=== PATIENT | male | born 1960 | race Caucasian/White ===

== ENCOUNTER → 2024-02-16 | Outpatient (CLI) | payer BC, SELFPAY ==
--- NOTE | 2024-02-16 13:11 | XR_ITS ---
Examination: CT soft tissue neck, without intravenous contrast. 2-D coronal reconstructions. 2-D sagittal reconstructions. Date and time of exam :February 16, 2024 1313 hours INDICATIONS: Swollen left neck lymph nodes no disc beginning 4 months ago. CTDI: vol (mGy):15.5 DLP: (mGycm):412 Technique: 1.25 mm axial sections of the neck of the obtained. Coronal and sagittal reconstructions have been obtained. Low dose protocols were performed. One or more of the following dose reduction techniques were used; automated exposure control, adjustment of the mA and/or KV according to patient size, use of iterative reconstruction technique. Findings: Optic globes exhibit symmetry Symmetrical nasopharynx oropharynx 29 mm left carotid triangle lymph node The larynx appears normal Normal epiglottis No prevertebral soft tissue prominence Moderate degenerative disc disease C5-C6, C6-C7 IMPRESSION: 29 mm left carotid triangle lymph node, differential would include metastatic lymphadenopathy, this lymph node is amenable to CT-guided percutaneous biopsy for diagnosis
== END | disposition home or self-care (01) ==
PROVIDERS: PCP Internal Medicine; Referring Provider Internal Medicine; Visit Provider Internal Medicine
DX: R59.0 Localized enlarged lymph nodes (principal)
CPT/HCPCS: 70490

== ENCOUNTER 2024-03-16 08:20 | Day surgery (SDC) | payer BC, SELFPAY ==
--- NOTE | 2024-03-12 07:00 | EKG_ITS ---
[facility] Test Date: 2024-03-12 Pat Name: EVELINE MENENDEZ Department: Room: - Gender: Male Resident Engineer: RT STUDENT : 1960 Requested By: Claudine Madrid Order Number: [id number] Reading MD: Claudine Madrid Measurements Intervals Dora Rate: 79 P: 21 NJ: 148 QRS: -7 QRSD: 101 T: 18 QT: 370 QTc: 426 Interpretive Statements SINUS RHYTHM LOW QRS VOLTAGE IN PRECORDIAL LEADS POSSIBLE RIGHT VENTRICULAR CONDUCTION DELAY MINIMAL VOLTAGE CRITERIA FOR LVH, CONSIDER NORMAL VARIANT No previous ECG available for comparison /store/S0/[id number]/ecg/[id number]
[2024-03-12 08:21] VITALS: BMI 29.3
[2024-03-12 10:18] LABS: Basophils # (Auto) 0.1 Thou/mm3 (0.0-0.2); Basophils % (Auto) 1 % (0-2.5); Eosinophils # (Auto) 0.4 Thou/mm3 (0.0-0.5); Eosinophils % (Auto) 3 % (0-10); Hematocrit 41.1 % (41.0-53.0); Hemoglobin 14.3 g/dL (13.5-16.0); Immature Granulocytes % (Auto) 1 % (0-0); Immature Granulocytes Auto 0.06 Thou/mm3 (0.00-0.00); Lymphocytes # (Auto) 1.9 Thou/mm3 (1.0-4.8); Lymphocytes % (Auto) 16 % (10-50); Mean Corpuscular HGB Conc 34.8 g/dl (31.0-37.0); Mean Corpuscular Hemoglobin 32.9 pg (25.0-35.0); Mean Corpuscular Volume 95 fL (80-100); Monocytes # (Auto) 1.5 Thou/mm3 (0.0-0.8); Monocytes % (Auto) 13 % (0-12); Neutrophils # (Auto) 7.7 Thou/mm3 (1.8-7.7); Neutrophils % (Auto) 66 % (37-80); Nucleated Red Blood Cell % 0 /100 WBC (0); Platelet Count 215 Thou/mm3 (140-440); RDW Standard Deviation 47.8 fL (35.1-43.9); Red Blood Count 4.34 Miln/mm3 (4.50-5.90); White Blood Count 11.5 Thou/mm3 (3.8-10.6)
[2024-03-12 10:38] LABS: Alanine Aminotransferase 20 U/L (10-49); Albumin, Serum 5.1 gm/dL (3.4-4.8); Albumin/Globulin Ratio 1.9 (1.2-2.2); Alkaline Phosphatase 77 U/L (46-116); Anion Gap 7 (7-16); Aspartate Amino Transferase 19 U/L (0-34); BUN/Creatinine Ratio 17 Ratio (12-20); Bilirubin,Total 1.4 mg/dL (0.3-1.2); Blood Urea Nitrogen 20 mg/dL (9-23); Calcium 10.1 mg/dL (8.3-10.6); Calcium (Corrected) 10.1 mg/dL (8.5-10.1); Carbon Dioxide 30.2 mMol/L (20.0-31.0); Chloride 98 mMol/L (98-107); Creatinine (Component) 1.2 mg/dL (0.6-1.3); Estimated Creatinine Clearance 66.9 mL/min (>60); Globulin 2.7 gm/dL (2.3-3.5); Glucose 117 mg/dL (74-106); Osmolality,Calculated 273 (275-295); Potassium 4.6 mMol/L (3.4-5.1); Sodium 135 mMol/L (136-145); Total Protein 7.8 gm/dL (5.7-8.2); eGFR > 60 See Note
--- NOTE | 2024-03-15 14:11 | SUR.PREOP ---
Pt notified to come in at 0830 tomorrow for surgery.
[2024-03-16] VITALS (9 sets, daily range): BP systolic 129–148; BP diastolic 67–84; PULSE 68–80; RESP 12–16; TEMP 36.5–36.9; O2SAT 95–99; BMI 28.5
[2024-03-16] MEDS: RINGERS LACTATED 1000 ML 1,000 ML 20 ML IV (09:27)
--- NOTE | 2024-03-16 10:46 | SUR.PHASEI ---
pt received from OR in recovery bay 8. pt asleep but responds to voice, breathing unlabored on oxymask 8l. v/s stable. pt dressing to left neck cdi. report received from Sully BRAGA and Ruslan EDMONDSON.
--- NOTE | 2024-03-16 10:52 | ESOP_ITS ---
Date of Procedure 03/16/24 Pre Op Diagnosis Left neck mass Post Op Diagnosis Left neck mass Procedure Excision of deep subfascial mass from left neck Findings An approximately 3.5 cm hard mass on the anterior triangle of the neck Procedure Description Patient brought into the operating room in supine position. After administration of general tracheal anesthesia, patient's neck was extended and turned to his right. The left side of the neck was prepped and draped in standard surgical manner. The mass was palpated and noted to be in the anterior triangle of the neck near the angle of the mandible. After administration of local anesthesia 3 cm incision was made and dissection was deepened soft tissue. Platysma was divided. The mass was noted to be anterior to the sternocleidomastoid muscle. The sternocleidomastoid muscle was retracted posteriorly and the area was inspected. Patient was noted to have an approximately 3.5 cm firm mass just lateral to the jugular vein. The mass was meticulously circumferentially dissected out surrounding tissue. The smaller venous channels entering the mass was ligated between application of clips. Also the lymphatic channels entering the mass was ligated. The mass was removed. The area was washed and irrigated. Hemostasis was adequate and satisfactory. Topical hemostatic agent using snow Surgicel placed to further assure hemostasis. Anterior edge of the sternocleidomastoid muscle was reapproximated to thyrohyoid muscle. Platysma was reapproximated with interrupted sutures using 2-0 Vicryl and incision was closed with 4-0 Monocryl in subcuticular fashion. Dermabond applied. Patient tolerated procedure well. He was extubated, breathing spontaneously and without difficulty and was transferred to postanesthesia care in stable condition. Instruments, needles and sponge counts were reported to be correct x 2. Anesthesia GETA and local Pathology / specimen Other (Left neck mass) Estimated Blood Loss 5 Condition Stable Disposition PACU Surgeon Claudine Madrid MD Surgical Staff Operation Date: 03/16/24 10:30 Case Staff HOME [employer]URNISH[employer] SALES REPRESENTATIVE: Ruslan Alcaraz RNcapping machine operator: Skye Bartlett
--- NOTE | 2024-03-16 11:44 | SUR.PHASEII ---
pt able to tolerate oral fluids without difficulty swallowing or nausea/vomiting.
--- NOTE | 2024-03-16 12:20 | SUR.PHASEII ---
pt awake and alert, breathing unlabored on room air. v/s stable. pt dressing to left neck cdi. pt able to ambulate to wheelchair with steady gait. d/c isntructions given with friend Phill in room, all questions answered. pt d/c via wheelchair with all belongings.
== END 2024-03-16 12:20 | disposition home or self-care (01) ==
PROVIDERS: Anesthesiology; PCP Internal Medicine; Referring Provider Surgery; Visit Provider Surgery
PROC: (CPT 21556; principal; 2024-03-16 10:15)
DX: C77.0 Secondary and unspecified malignant neoplasm of lymph nodes of head, face and neck (principal); C80.1 Malignant (primary) neoplasm, unspecified; E11.9 Type 2 diabetes mellitus without complications; E78.00 Pure hypercholesterolemia, unspecified; I10 Essential (primary) hypertension
CPT/HCPCS: 21556; 36415; 80053; 85025; 93005; A4217; A4649; J0131; J0690; J1100; J2250; J2405; J2704; J3010; J3490; J7120

== ENCOUNTER → 2024-03-30 | Outpatient (CLI) | payer BC, SELFPAY ==
[2024-03-30 17:17] LABS: Albumin, Serum 4.4 gm/dL (3.4-4.8); Anion Gap 7 (7-16); BUN/Creatinine Ratio 21 Ratio (12-20); Blood Urea Nitrogen 25 mg/dL (9-23); Calcium 10.2 mg/dL (8.3-10.6); Calcium (Corrected) 10.2 mg/dL (8.5-10.1); Carbon Dioxide 28.9 mMol/L (20.0-31.0); Chloride 105 mMol/L (98-107); Creatinine (Component) 1.2 mg/dL (0.6-1.3); Glucose 132 mg/dL (74-106); Osmolality,Calculated 287 (275-295); Phosphorous 4.1 mg/dL (2.4-5.1); Potassium 4.6 mMol/L (3.4-5.1); Sodium 141 mMol/L (136-145); eGFR > 60 See Note
== END | disposition home or self-care (01) ==
LOC: COPL 15:07
PROVIDERS: PCP Internal Medicine; Referring Provider Internal Medicine; Visit Provider Internal Medicine
DX: I10 Essential (primary) hypertension (principal)
CPT/HCPCS: 36415; 80069

== ENCOUNTER 2024-05-05 08:42 | Outpatient (RCR) | payer BC, SELFPAY ==
--- NOTE | 2024-04-27 13:22 | CTCTXPLN_ITS ---
[facility] [address] [place], [place] [address] Physician Clinical Treatment Planning Note Date of Service: 04/27/2024 Name: EVELINE MENENDEZ : 1960 The patient has agreed to proceed with Radiation therapy. Tests and supporting medical records were interpreted to assist in defining the tumor location and extent of disease. Further imaging will be necessary to contour and delineate the volume to which the XRT will be provided. A. Treatment Intent: Curative B. Modality: 6 MV C. Requested Technique: VMAT D. Treatment Site: Head and neck E. Critical structures to be contoured on plan: F. In order to accomplish this plan, I am ordering/Prescribing the followin. Simulations (s) will be performed to accomplish a reproducible treatment position, to determine optimal treatment portals/beam arrangements, to design beam modifying devices and verify treatment portals on patient prior to the commencement of Radiation Therapy. Head and neck 2. Devices; for immobilization and beam shaping: Aquaplast 3. CT Guidance for placement of XRT villalba Scan area: 4. Portal images Frequency: 5. Invivo transit dose measurement once per week on all VMAT patients. 6. Special Physics Consult Requested for: 7. Other requests: This procedure someone getting chemo and radiation G. Dose Objectives: Curative Electronically signed by: Jordan Chappell M.D. 04/27/2024 1:20 PM
--- NOTE | 2024-04-27 13:24 | CTCTXPLNST_ITS ---
[facility] Treatment Planning Sheet Name: EVELINE MENENDEZ MR#: [id number] : 1960 Dx: C01 Malignant neoplasm of base of tongue Date of Service: 04/27/2024 Account #: ?? Pt Treatment Intent: curative palliative other: Stage: Procedure CPT # Ordered Spec. Procedure 41228 1 Bailey Complex (set-up) 39488 Head and neck 1 Bailey Simple 49444 IMRT Plan 93306 1 MLC Devices VMAT 69817 3 Bailey 3 D 75448 TRTMT dev Complex 73207 Aqua Plast 1 TRTMT dev simple 76950 Basic Carmine 66592 9 Special Dosimetry 87516 Spec Physics 71453 Port Films 65315 SRS Cranial/1FX 52699 SBR 5 FX or Less /ex: 5 = 5 fx 29152 IMRT Simple 62304 7000 35 IMRT Complex 51911 IGRT 31828 33 Rad del com 6-10 91667 Rad del com 11- 08819 Cont Med Physics 87387 7 Treatment Planning 63873 1 Rad del com 20 mev 07900 Rad del inter 6-10 57861 Rad del inter 11 85399 Rad del simple 6-10 75525 Rad del simple 11 88623 Special Port Plan 53228 TRTMT dev inter 51665 Isodose Complex 50064 Isodose simple 68939 Resp Motion Mgmt Simulation 02977 Placement of Fiducial Markers 53829 Electronically Signed By: Jordan Chappell MD, DABR 04/27/2024 1:21 PM
--- NOTE | 2024-04-28 08:30 | CTCCONSULT_ITS ---
[facility] [address] [place], [place] [address] Consultation Note Date: 04/27/2024 MR#: [id number] Name: EVELINE MENENDEZ : 1960 Dx: C01 Malignant neoplasm of base of tongue Attending physician. Natalie Jeffery MD Reason for consultation. Patient with cT4N1 base of tongue CA with neck mets referred for radiation therapy to the cancer treatment center History of Present Illness: Patient is a 63-year-old gentleman who noticed a growing mass in the left side of his neck with CT scan of the neck 02/16/2024 revealing a 29 mm left carotid triangle lymph node when undergoing excisional biopsy revealed metastatic squamous cell CA moderate differentiated largest dimension 4.2 cm. P16 positive. PD-L1 score 30. Further evaluated [facility] where MRI and PET scan ordered by the head and neck surgery team. MRI 04/12/2024 revealed bulky mass surface left base of tongue extending anteriorly to the posterior half of the floor the mouth into glossotonsillar sulcus to involve the anterior tonsillar pillar. Mass extended into the vallecula region. PET scan 04/11/2024 revealed intense base of tongue mass involving the posterior half of the floor of the mouth on the left to involve vallecular region mildly uptake in the level 3 in the left neck and small focus around the right retromolar trigone area. Patient was considered for surgery, but felt to be a better radiation candidate and referred to the cancer treatment center. Past Medical History: Hypertension asthma diabetes Meds. 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 Denies smoking drinks 3 beers per day Review of Systems: Has experienced cough headaches trouble swallowing unexplained fatigue weakness Physical Exam: General: Well-appearing gentleman no acute distress HEENT: Easily visible and palpable mass in the left base of tongue which does extend posteriorly to the vallecular region and anteriorly to the mid floor the mouth. Surgical changes felt in the left neck no other adenopathy appreciated CV: Chest clear to auscultation heart regular rate and rhythm ABD: Soft no organomegaly or tenderness EXT: No sinus clubbing or edema. Assessment: 1. 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 2. Patient stated that they recommend radiation therapy but did not hear about chemotherapy which is usually given concurrently. Will check with his head and neck surgeon at [facility] Dr Kenney. 3. Told to see dentist about preradiation dental eval. 4. About 7000 cGy will be delivered to the gross tumor sites and 5000-50 500 centigrade to the subclinically involved regions. Side effects explained. 5. Thank you much for allowing me to evaluate and manage this patient. Cc: Saumya Jeffery MD [facility] Head and Neck surgery. Electronically signed by: Jordan Chappell MD, DABR 04/28/2024 8:28 AM
--- NOTE | 2024-05-06 12:58 | CTCCONSULT_ITS ---
Patient: EVELINE MENENDEZ : 1960 MR#: [id number] Page 2 of 2 CONSULTATION NOTE DATE OF CONSULTATION: 05/05/2024 NAME: EVELINE MENENDEZ ACCOUNT: [id number] : 1960 AGE: 63 REFERRING PHYSICIAN: Natalie Jeffery MD PRIMARY PHYSICIAN: Natalie Jeffery MD REASON FOR VISIT: ONCOLOGY HISTORY: DIAGNOSIS: Malignant neoplasm of base of tongue [ICD10] C01 Squamous cell carcinoma of the base of the tongue DATE OF DIAGNOSIS: 03/16/2024 STAGE/TNM: T4 N1 M0 TREATMENT HISTORY: Care?Plan Start?Date Cycle Day Intent HISTORY OF PRESENT ILLNESS: 63-year-old male OTHER MEDICAL HISTORY/CONDITIONS: TONGUE CANCER DIABETES ASTHMA HYPERTENSION CHOLECYSTECTOMY 2012 RIGHT KNEE REPAIR 2016 FAMILY HISTORY: Father:?DENIES Mother:?DENIES Sibling:?SISTER?LICHEN?SCLEROSUS Children:?DENIES Cancer?History:?TONGUE?CANCER SOCIAL HISTORY: Occupational?History:?[employer] Education?Level:?Attended College, did not graduate Marital?Status:? Tobacco?Pack?per?Day:?0 Tobacco?Use?Years:?3 Tobacco Use:?DENIES , SMOKED FOR 3 YEARS IN 90S ETOH?Use:?DAILY?LIQUOR Drug?Note:?DENIES Social?History?Note:?LIVES?ALONE MEDICATIONS: 1. Aspirin Child - 81 mg Daily 2. atorvastatin - 40 mg Daily 3. lisinopril-hydrochlorothiazide - 10 mg Daily 4. metformin - 500 mg Daily 5. Wixela Inhub - As directed Medications Last Reconciled by Noelle Bob RN on 05/05/2024 ALLERGIES: No Known Allergies REVIEW OF SYSTEMS: A complete 14-point review of systems was performed and is negative except as noted in interval history. PHYSICAL EXAMINATION: VITAL SIGNS: Temperature?99.5, B/P?139/84, Height?68?inches, Oxygen?Saturation?97% Weight?194?lbs (Change?since?04/27/24:?0?lbs) PAIN: 0 - No pain ECOG Performance Status: 0 - Asymptomatic and fully active GENERAL APPEARANCE: Appears well, in no apparent distress, appropriately interactive. HEENT: Normocephalic, no temporal wasting, normal conjunctiva, no scleral icterus, normal hearing, lips without lesions, neck normal range of motion. Large mass visible of by the open mouth coming from the back of the tongue CARDIOVASCULAR: Not assessed. PULMONARY: Normal respiratory effort, no respiratory distress or use of accessory muscles, speaking in full sentences, no tachypnea. EXTREMITIES: No pedal edema or cyanosis. SKIN: Normal skin appearance. NEUROLOGIC: Alert and oriented x4. PSHYCHIATRIC: Appropriate affect, mood normal, behavior normal, intact thought and speech. LABORATORY DATA: I have personally reviewed and interpreted each of the patient?s relevant lab tests, abnormal findings are below: Date 03/30/24 ??GLUCOSE,RANDOM?(mg/dL) 132?H ??BLOOD?UREA?NITROGEN?(mg/dL) 25?H ??CREATININE?(mg/dL) 1.20 ??SODIUM?(mmol/L) 141 ??POTASSIUM?(mmol/L) 4.6 ??CHLORIDE?(mmol/L) 105 ??ALBUMIN,?SERUM?(gm/dl) 4.4 ??CALCIUM,?SERUM?(mg/dL) 10.2 ??CALCIUM?SERUM?(CORRECTED)?(mg/dL) 10.2?H 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 with extension to the floor of the mouth vallecula and neck Will treat him with concurrent chemoradiation Patient was initially planned by [facility] team for surgery and later planned for radiation but patient now has transferred care Will get port catheter placement. Patient already have appointment. Will need PEG tube feeding. Nutrition consult. Patient also need to see dentist and audiometry at the baseline We do not need to wait for all the above to complete before starting treatment as long as patient have port catheter High dose cisplatin ORDERS: Order # Description [id number] Comprehensive Metabolic Panel - 12 + CBC with Auto Diff + [id number] MD Follow Up 4 Month [id number] MD Follow Up 4 Week RETURN TO CLINIC: BILLING AND COMPLIANCE: I reviewed external records from providers outside my specialty as summarized above. I spent a total of 50 minutes on this patient?s care on the day of their visit excluding time spent related to any billed procedures. This time includes time spent with the patient as well as time spent documenting in the medical record, reviewing patients records and tests, obtaining history, placing orders, communicating with other healthcare professionals, counseling the patient, family or caregiver, and/or care coordination for the diagnoses above. Electronically Signed by: Corwin Frank MD T: 12:55 PM CC: PCP: Natalie Jeffery Referring: Natalie Jeffery This document was completed utilizing speech recognition software. Grammatical errors, random word insertions, pronoun errors, and incomplete sentences are an occasional consequence of this system due to software limitations, ambient noise, and hardware issues. Any formal questions or concerns about the content, text or information contained within the body of this dictation should be directly addressed to the provider for clarification.
== END 2024-05-17 23:59 | disposition home or self-care (01) ==
LOC: SCTC 08:42
PROVIDERS: PCP Internal Medicine; Referring Provider Internal Medicine; Visit Provider Internal Medicine Hematology & Oncology
DX: C01 Malignant neoplasm of base of tongue (principal); C77.0 Secondary and unspecified malignant neoplasm of lymph nodes of head, face and neck
CPT/HCPCS: 77014; 77290; 77300; 77301; 77334; 77338; 99213; G0463

== ENCOUNTER 2024-05-20 08:22 | Outpatient (CLI) | payer BC, SELFPAY ==
[2024-05-11 14:07] VITALS: BMI 27.9
[2024-05-12 10:57] VITALS: BMI 27.8
[2024-05-12 13:13] LABS: Basophils # (Auto) 0.1 Thou/mm3 (0.0-0.2); Basophils % (Auto) 1 % (0-2.5); Eosinophils # (Auto) 0.1 Thou/mm3 (0.0-0.5); Eosinophils % (Auto) 1 % (0-10); Hemoglobin 13.6 g/dL (13.5-16.0); Immature Granulocytes % (Auto) 0 % (0-0); Immature Granulocytes Auto 0.03 Thou/mm3 (0.00-0.00); Lymphocytes # (Auto) 2.1 Thou/mm3 (1.0-4.8); Lymphocytes % (Auto) 19 % (10-50); Mean Corpuscular Hemoglobin 33.7 pg (25.0-35.0); Mean Corpuscular Volume 99 fL (80-100); Monocytes % (Auto) 9 % (0-12); Neutrophils # (Auto) 7.4 Thou/mm3 (1.8-7.7); Neutrophils % (Auto) 70 % (37-80); Nucleated Red Blood Cell % 0 /100 WBC (0); Platelet Count 252 Thou/mm3 (140-440); RDW Standard Deviation 46.8 fL (35.1-43.9); Red Blood Count 4.03 Miln/mm3 (4.50-5.90); White Blood Count 10.6 Thou/mm3 (3.8-10.6)
[2024-05-12 13:20] LABS: Partial Thromboplastin Time 24.4 Seconds (22.0-36.0); Prothrombin Time 11.4 Seconds (9.0-12.2)
[2024-05-13 08:56] VITALS: BP 139/73; PULSE 66; RESP 17; TEMP 36.5; O2SAT 97
--- NOTE | 2024-05-13 09:18 | PC.NURSE ---
Patient took Aspirin yesterday. Per Dr Cruz reschedule patient for next week and for patient not to take Aspirin 5 days prior to procedure.
[2024-05-17 16:33] VITALS: BMI 27.8
[2024-05-20] VITALS (14 sets, daily range): BP systolic 111–136; BP diastolic 50–84; PULSE 66–80; RESP 12–18; TEMP 36.5–36.9; O2SAT 93–100
--- NOTE | 2024-05-20 09:30 | XR_ITS ---
Examination: IR venous implantation Port-A-Cath Ultrasound-guided needle placement right internal jugular vein. Fluoroscopy AP Chest, portable single view Exam date and time: May 20, 2024 1017 hours INDICATIONS: Diagnosis malignant neoplasm base of the tongue, requiring long-term intravenous chemotherapy. Informed consent provided Technique: A timeout was completed, verifying correct patient, procedure, site, positioning, and special equipment if applicable The patient was placed in a dependent position appropriate for central line placement based on the vein to be cannulated. The patient's right neck was prepped and draped in sterile fashion. Maximum Sterile Barrier Technique used including cap, mask, sterile gown, sterile gloves, and sterile full body drape. If ultrasound technique used: sterile gel and sterile probe covers. Hand Hygiene performed using proper scrub, soap and water, or alcohol-based hand rub. Site right portable apparatus utilized to confirm patency of the right internal jugular vein Utilizing ultrasonographic guidance successful 21-gauge needle puncture into the right internal jugular vein Ultrasound images were recorded and stored. Successful micropuncture with a 21-gauge needle was performed. 0.18 wire guide was introduced into the IVC under fluoroscopic guidance. Utilizing blunt dissection subcutaneous pocket formed in the upper right chest Port-A-Cath reservoir connected to a 8 Georgian 22 cm Port-A-Cath line placed through a venous sheath into the superior vena cava in satisfactory position Perfusion to the extremity distal to the point of catheter insertion was checked and found to be adequate The attending radiologist was present for the entire procedure Estimated blood loss2 cc. Findings: Under fluoroscopy, the tip of the catheter is in good position in the vena cava. Portable chest x-ray, post line placement, as ordered. Impression: Successful ultrasound-guided needle placement right internal jugular vein. Successful IR venous implantation Port-A-Cath Fluoroscopy 0.4 minutes radiation dose 2.16 milligray 1 spot fluoroscopic chest film. AP portable chest completion procedure demonstrates satisfactory position Port-A-Cath tip SVC. May use Port-A-Cath
[2024-05-20] MEDS: SODIUM CHLORIDE 0.9% 500 ML 500 ML 20 ML IV (10:45)
[2024-05-20] MEDS: ceFAZolin 1 GM in SODIUM CHLORIDE 0.9% 100 ML IV (10:45)
[2024-05-20] MEDS: fentaNYL CIT INJ 50 mCg/ML AMP 2ML 100 MCG IVP (11:16)
[2024-05-20] MEDS: LIDOCAINE 1% W/EPI 1:100K 20 ML VIAL 7 ML INFL (11:18)
[2024-05-20] MEDS: ceFAZolin INJ 1 GM VIAL STFIELD (11:18)
[2024-05-20] MEDS: LIDOCAINE INJ PF 1% 30 ML VIAL 5 ML INFL (11:18)
[2024-05-20] MEDS: HEPARIN SOD LOCK SYR 100 UNIT/ML 500 UNIT STFIELD (11:18)
--- NOTE | 2024-05-20 15:55 | PC.NURSE ---
1146 patient had port placement to right IJ, dressing dry with no bleeding, pt transferred to lab support tech for 1hr recovery 1246 patient is awake, alert, breathing unlabored, dressing dry with no active bleeding, patient able to eat sandwich with no nausea or vomiting, able to ambulate to bathroom and void, meets discharge criteria, discharge instructions given to patient and friend Inder, patient discharged home in wheelchair with all belongings.
== END 2024-05-20 12:46 | disposition home or self-care (01) ==
PROVIDERS: Radiology Diagnostic Radiology; PCP Internal Medicine; Referring Provider Internal Medicine Hematology & Oncology; Visit Provider Internal Medicine Hematology & Oncology
DX: C01 Malignant neoplasm of base of tongue (principal)
CPT/HCPCS: 36561; 36415; 76937; 77001; 85025; 85610; 85730; C1769; C1788; C1894; J0690; J1642; J3010; J3490; J7040; J7050

== ENCOUNTER 2024-06-08 11:29 | Emergency (ER) | payer BC, SELFPAY ==
[2024-06-08 11:39] VITALS: BP 95/65; PULSE 92; RESP 19; TEMP 37.1; O2SAT 96
--- NOTE | 2024-06-08 12:20 | EKG_ITS ---
[facility] Test Date: 2024-06-08 Pat Name: EVELINE MENENDEZ Department: Room: - Gender: Male Softball Winder: : 1960 Requested By: Oliver Snow Order Number: [id number] Reading MD: Oliver Snow Measurements Intervals Dailey Rate: 78 P: 15 MT: 144 QRS: 2 QRSD: 94 T: 27 QT: 355 QTc: 404 Interpretive Statements SINUS RHYTHM LOW QRS VOLTAGE IN PRECORDIAL LEADS [QRS DEFLECTION < 1.0 mV IN CHEST LEADS] POSSIBLE RIGHT VENTRICULAR CONDUCTION DELAY [RSR (QR) IN V1/V2] POSSIBLE ANTERIOR MYOCARDIAL INFARCTION , OF INDETERMINATE AGE [30 ms Q WAVE IN V3/V4, OR R < 0.2 mV IN V4] Compared to ECG 03/12/2024 09:10:16 Myocardial infarct finding now present /store/S0/[id number]/ecg/[id number]
--- NOTE | 2024-06-08 12:21 | PD.EDRME ---
Rapid Medical Screening Exam E Arrival date/time: 06/08/24 11:29 63-year-old male with a history of hyperlipidemia, hypertension, type 2 diabetes was sent to the emergency room by his primary care provider Dr. Jeffery for hypotension and needing IV fluids. Patient had a blood pressure of 77/57 during his appointment with his primary care provider this morning. I have greeted and performed a focused initial assessment of this patient. A comprehensive ED assessment and evaluation of the patient, analysis of all test results, and completion of the medical decision making process will be conducted by additional ED providers. Chief Complaint: General Adult/Misc Complain Vital signs: Vital Signs Temperature 98.8 F 06/08/24 11:39 Pulse Rate 92 06/08/24 11:39 Respiratory Rate 19 06/08/24 11:39 Blood Pressure 95/65 06/08/24 11:39 Pulse Oximetry (%) 96 06/08/24 11:39 Oxygen Delivery Method Room Air 06/08/24 11:39 Vital signs reviewed by provider: Yes
--- NOTE | 2024-06-08 12:41 | PD.EDRECHK ---
ED Recheck Abnl Lab Rx-RME/HPI General Chief Complaint: General Adult/Misc Complain Stated Complaint: SENT BY DR. JEFFERY FOR IV FLUIDS; BP 77/56 Arrival date/time: 06/08/24 11:29 RME / HPI RME / HPI narrative: 06/08/24 11:29 63-year-old male with a history of hyperlipidemia, hypertension, type 2 diabetes was sent to the emergency room by his primary care provider Dr. Jeffery for hypotension and needing IV fluids. Patient had a blood pressure of 77/57 during his appointment with his primary care provider this morning. I have greeted and performed a focused initial assessment of this patient. A comprehensive ED assessment and evaluation of the patient, analysis of all test results, and completion of the medical decision making process will be conducted by additional ED providers. DR. MONTERO MAIN ED EVALUATION: Related Data Home Medications ?Medication ?Instructions ?Recorded ?Confirmed albuterol sulfate 90 mcg/actuation 1 inh inhalation QID PRN Shortness 03/12/24 05/20/24 aerosol inhaler Of Breath Or Wheezing atorvastatin 40 mg tablet 40 mg PO DAILY 03/12/24 05/20/24 fluticasone 250 mcg-salmeterol 50 1 inh inhalation BID 03/12/24 05/20/24 mcg/dose blistr powdr for inhalation (Wixela Inhub) lisinopril 10 1 tab PO DAILY 03/12/24 05/20/24 mg-hydrochlorothiazide 12.5 mg tablet metformin 500 mg tablet 500 mg PO QDAY 03/12/24 05/20/24 aspirin 81 mg tablet,delayed 81 mg PO DAILY 05/20/24 05/20/24 release Held on 05/20/24. Instructions: Resume on 05/22/24. resume aspirin on friday Allergies Allergy/AdvReac Type Severity Reaction Status Date / Time No Known Allergies Allergy Verified 06/08/24 11:31 Course Orders Category Date Time Status EKG (ED ONLY) *Do not use* NOW Care 06/08/24 12:20 Completed Insert [Insert IV] STAT Care 06/08/24 12:20 Active EKG (ED Only) Stat Exams 06/08/24 12:20 Draft BNP [B-Type Natriuretic Peptide] Stat Lab 06/08/24 12:30 Completed CBC Stat Lab 06/08/24 12:30 Completed CMP [Comprehensive Metabolic Panel] Stat Lab 06/08/24 12:30 Completed PT [Prothrombin Time with INR] Stat Lab 06/08/24 12:30 Completed PTT [Partial Thromboplastin Time] Stat Lab 06/08/24 12:30 Completed Troponin I Stat Lab 06/08/24 12:30 Completed Sodium Chloride 0.9% 1000 ml [Ns] 1,000 ml Med 06/08/24 12:20 Discontinued IV 999 mls/hr Sodium Chloride 0.9% 1000 ml [Ns] 2,000 ml Med 06/08/24 12:44 Active IV 999 mls/hr Vital Signs Vital signs: Vital Signs Temperature 98.8 F 06/08/24 11:39 Pulse Rate 92 06/08/24 11:39 Respiratory Rate 19 06/08/24 11:39 Blood Pressure 95/65 06/08/24 11:39 Pulse Oximetry (%) 96 06/08/24 11:39 Oxygen Delivery Method Room Air 06/08/24 11:39 Recheck / Abnormal Lab / Rx MDM Narrative MDM Narrative:: ITayler am scribing for and in the presence of Dr. Montero. Evaluation data Interpretation Summary: EKG#1: EKG at 1232 hours. Interpreted by me: sinus rhythm, rate 78, low voltage, KS interval 144 ms, QRS duration 94 ms, QT/QTc 355/388, P-R-T axis 15, 2, and 27 Medications / Prescriptions Medication administrations:: Medication Administration History Sodium Chloride (Ns) 2,000 mls @ 999 mls/hr IV .Q2H1M ONE Stop: 06/08/24 14:44 Discontinued Medications Sodium Chloride (Ns) 1,000 mls @ 999 mls/hr IV .Q1H1M ONE Stop: 06/08/24 13:20 Discharge Plan Prescriptions/Referrals Prescriptions/Med Rec: No Action aspirin 81 mg tablet,delayed release (DR/EC) 81 mg PO DAILY Patient Comments: TAKE 1 TABLET BY MOUTH EVERY DAY atorvastatin 40 mg tablet 40 mg PO DAILY Patient Comments: TAKE 1 TABLET BY MOUTH EVERY DAY FOR 90 DAYS metformin 500 mg Tablet 500 mg PO QDAY fluticasone propion-salmeterol [Wixela Inhub] 250-50 mcg/dose Blister With Device 1 inh INHALATION BID lisinopril-hydrochlorothiazide 10-12.5 mg tablet 1 tab PO DAILY Patient Comments: TAKE 1 TABLET BY MOUTH EVERY DAY albuterol sulfate 90 mcg/actuation Hfa Aerosol Inhaler 1 inh INHALATION QID PRN (Reason: Shortness Of Breath Or Wheezing) Referrals: Natalie Jeffery MD [Primary Care Provider] - In 1 week Patient/Caregiver Discharge Instructions Print Language: Telugu
[2024-06-08 12:52] LABS: Basophils % (Auto) 0 % (0-2.5); Eosinophils # (Auto) 0.3 Thou/mm3 (0.0-0.5); Eosinophils % (Auto) 3 % (0-10); Hematocrit 38.1 % (41.0-53.0); Hemoglobin 12.9 g/dL (13.5-16.0); Immature Granulocytes % (Auto) 0 % (0-0); Immature Granulocytes Auto 0.02 Thou/mm3 (0.00-0.00); Lymphocytes # (Auto) 0.5 Thou/mm3 (1.0-4.8); Lymphocytes % (Auto) 5 % (10-50); Mean Corpuscular HGB Conc 33.9 g/dl (31.0-37.0); Mean Corpuscular Volume 97 fL (80-100); Monocytes # (Auto) 0.8 Thou/mm3 (0.0-0.8); Monocytes % (Auto) 7 % (0-12); Neutrophils # (Auto) 8.8 Thou/mm3 (1.8-7.7); Neutrophils % (Auto) 84 % (37-80); Nucleated Red Blood Cell % 0 /100 WBC (0); Platelet Count 225 Thou/mm3 (140-440); RDW Standard Deviation 43.9 fL (35.1-43.9); Red Blood Count 3.91 Miln/mm3 (4.50-5.90); White Blood Count 10.5 Thou/mm3 (3.8-10.6)
[2024-06-08 13:07] LABS: INR 1.1 (0.9-1.3); Partial Thromboplastin Time 24.9 Seconds (22.0-36.0); Prothrombin Time 11.9 Seconds (9.0-12.2)
[2024-06-08 13:15] LABS: B-Type Natriuretic Peptide < 20 pg/mL (0-100)
--- NOTE | 2024-06-08 13:15 | PC.NURSE ---
NO ANSWER IN LOBBY
[2024-06-08 13:21] LABS: Alanine Aminotransferase 22 U/L (10-49); Albumin, Serum 4.7 gm/dL (3.4-4.8); Albumin/Globulin Ratio 1.7 (1.2-2.2); Alkaline Phosphatase 81 U/L (46-116); Anion Gap 9 (7-16); Aspartate Amino Transferase 13 U/L (0-34); BUN/Creatinine Ratio 14 Ratio (12-20); Bilirubin,Total 0.4 mg/dL (0.3-1.2); Blood Urea Nitrogen 88 mg/dL (9-23); Carbon Dioxide 26.9 mMol/L (20.0-31.0); Chloride 103 mMol/L (98-107); Creatinine (Component) 6.4 mg/dL (0.6-1.3); Globulin 2.7 gm/dL (2.3-3.5); Glucose 101 mg/dL (74-106); Osmolality,Calculated 304 (275-295); Potassium 5.9 mMol/L (3.4-5.1); Sodium 139 mMol/L (136-145); Total Protein 7.4 gm/dL (5.7-8.2); Troponin I < 0.020 ng/mL (0.0-0.045); eGFR 9 See Note
--- NOTE | 2024-06-08 13:52 | PC.NURSE ---
NO ANSWER IN LOBBY
--- NOTE | 2024-06-08 13:59 | PD.EDADDENDU ---
Emergency Room Addendum Addendum Narrative: 1100: At this time, Dr. Jeffery called me to see this patient. Dr. Jeffery was sending the patient for IV fluids and then they could be discharged. Dr. Jeffery stated the patient does not want to stay and denied admission. Patient will be given IV fluids for hypotension. When the patient arrived I went to look for the patient but there was no answer. Then again no answer at 1350 hours or 1230 hours. I did not see, examine, or talked to the patient. Patient eloped. I did see the EKG but not the patient. EKG#1: EKG at 1232 hours. Interpreted by me: sinus rhythm, rate 78, low voltage, RI interval 144 ms, QRS duration 94 ms, QT/QTc 355/388, P-R-T axis 15, 2, and 27.
== END 2024-06-08 15:52 | disposition left against medical advice (07) ==
PROVIDERS: Nurse Practitioner Family; Emergency Provider Family Medicine; PCP Internal Medicine
DX: I95.9 Hypotension, unspecified (principal); R94.31 Abnormal electrocardiogram [ECG] [EKG]; Z53.29 Procedure and treatment not carried out because of patient's decision for other reasons
CPT/HCPCS: 36415; 80053; 83880; 84484; 85025; 85610; 85730; 93005; 99281

== ENCOUNTER 2024-06-16 10:59 | Outpatient (RCR) | payer BC, SELFPAY ==
[2024-05-21 09:56] LABS: Basophils % (Auto) 1 % (0-2.5); Eosinophils # (Auto) 0.1 Thou/mm3 (0.0-0.5); Eosinophils % (Auto) 2 % (0-10); Hematocrit 40.9 % (41.0-53.0); Hemoglobin 13.9 g/dL (13.5-16.0); Immature Granulocytes % (Auto) 0 % (0-0); Immature Granulocytes Auto 0.02 Thou/mm3 (0.00-0.00); Lymphocytes # (Auto) 1.6 Thou/mm3 (1.0-4.8); Lymphocytes % (Auto) 21 % (10-50); Mean Corpuscular Hemoglobin 33.8 pg (25.0-35.0); Mean Corpuscular Volume 100 fL (80-100); Monocytes % (Auto) 13 % (0-12); Neutrophils # (Auto) 4.7 Thou/mm3 (1.8-7.7); Neutrophils % (Auto) 63 % (37-80); Nucleated Red Blood Cell % 0 /100 WBC (0); Platelet Count 266 Thou/mm3 (140-440); RDW Standard Deviation 45.7 fL (35.1-43.9); Red Blood Count 4.11 Miln/mm3 (4.50-5.90); White Blood Count 7.5 Thou/mm3 (3.8-10.6)
[2024-05-21 10:10] LABS: Magnesium 1.9 mg/dL (1.6-2.6)
[2024-05-21 10:13] LABS: Alanine Aminotransferase 22 U/L (10-49); Albumin, Serum 4.8 gm/dL (3.4-4.8); Albumin/Globulin Ratio 1.8 (1.2-2.2); Alkaline Phosphatase 80 U/L (46-116); Anion Gap 8 (7-16); Aspartate Amino Transferase 22 U/L (0-34); BUN/Creatinine Ratio 17 Ratio (12-20); Bilirubin,Total 0.7 mg/dL (0.3-1.2); Blood Urea Nitrogen 19 mg/dL (9-23); Calcium 9.8 mg/dL (8.3-10.6); Calcium (Corrected) 9.8 mg/dL (8.5-10.1); Carbon Dioxide 29.9 mMol/L (20.0-31.0); Chloride 103 mMol/L (98-107); Creatinine (Component) 1.1 mg/dL (0.6-1.3); Globulin 2.6 gm/dL (2.3-3.5); Glucose 113 mg/dL (74-106); Osmolality,Calculated 284 (275-295); Potassium 4.2 mMol/L (3.4-5.1); Sodium 141 mMol/L (136-145); Total Protein 7.4 gm/dL (5.7-8.2); eGFR > 60 See Note
[2024-06-14 08:39] LABS: Basophils % (Auto) 1 % (0-2.5); Eosinophils # (Auto) 0.4 Thou/mm3 (0.0-0.5); Eosinophils % (Auto) 10 % (0-10); Hematocrit 35.5 % (41.0-53.0); Hemoglobin 12.1 g/dL (13.5-16.0); Immature Granulocytes % (Auto) 0 % (0-0); Immature Granulocytes Auto 0.01 Thou/mm3 (0.00-0.00); Lymphocytes # (Auto) 0.7 Thou/mm3 (1.0-4.8); Lymphocytes % (Auto) 18 % (10-50); Mean Corpuscular HGB Conc 34.1 g/dl (31.0-37.0); Mean Corpuscular Hemoglobin 33.7 pg (25.0-35.0); Mean Corpuscular Volume 99 fL (80-100); Monocytes # (Auto) 0.6 Thou/mm3 (0.0-0.8); Monocytes % (Auto) 14 % (0-12); Neutrophils # (Auto) 2.2 Thou/mm3 (1.8-7.7); Neutrophils % (Auto) 57 % (37-80); Nucleated Red Blood Cell % 0 /100 WBC (0); Platelet Count 197 Thou/mm3 (140-440); RDW Standard Deviation 43.4 fL (35.1-43.9); Red Blood Count 3.59 Miln/mm3 (4.50-5.90); White Blood Count 3.9 Thou/mm3 (3.8-10.6)
[2024-06-14 09:11] LABS: Alanine Aminotransferase 28 U/L (10-49); Albumin, Serum 4.2 gm/dL (3.4-4.8); Albumin/Globulin Ratio 1.6 (1.2-2.2); Alkaline Phosphatase 82 U/L (46-116); Anion Gap 9 (7-16); Aspartate Amino Transferase 14 U/L (0-34); BUN/Creatinine Ratio 15 Ratio (12-20); Bilirubin,Total 0.2 mg/dL (0.3-1.2); Blood Urea Nitrogen 72 mg/dL (9-23); Calcium 9.2 mg/dL (8.3-10.6); Calcium (Corrected) 9.2 mg/dL (8.5-10.1); Carbon Dioxide 27.6 mMol/L (20.0-31.0); Chloride 102 mMol/L (98-107); Creatinine (Component) 4.8 mg/dL (0.6-1.3); Globulin 2.6 gm/dL (2.3-3.5); Glucose 174 mg/dL (74-106); Magnesium 1.8 mg/dL (1.6-2.6); Osmolality,Calculated 302 (275-295); Potassium 4.6 mMol/L (3.4-5.1); Sodium 139 mMol/L (136-145); Total Protein 6.8 gm/dL (5.7-8.2); eGFR 13 See Note
[2024-06-15 11:18] LABS: Alanine Aminotransferase 25 U/L (10-49); Albumin, Serum 4.3 gm/dL (3.4-4.8); Albumin/Globulin Ratio 1.8 (1.2-2.2); Alkaline Phosphatase 69 U/L (46-116); Anion Gap 7 (7-16); Aspartate Amino Transferase 14 U/L (0-34); BUN/Creatinine Ratio 14 Ratio (12-20); Bilirubin,Total 0.2 mg/dL (0.3-1.2); Blood Urea Nitrogen 50 mg/dL (9-23); Calcium 9.2 mg/dL (8.3-10.6); Calcium (Corrected) 9.2 mg/dL (8.5-10.1); Carbon Dioxide 27.1 mMol/L (20.0-31.0); Chloride 101 mMol/L (98-107); Creatinine (Component) 3.5 mg/dL (0.6-1.3); Globulin 2.4 gm/dL (2.3-3.5); Glucose 112 mg/dL (74-106); Osmolality,Calculated 284 (275-295); Potassium 4.7 mMol/L (3.4-5.1); Sodium 135 mMol/L (136-145); Total Protein 6.7 gm/dL (5.7-8.2); eGFR 19 See Note
[2024-06-16 12:06] LABS: Alanine Aminotransferase 21 U/L (10-49); Albumin/Globulin Ratio 1.7 (1.2-2.2); Alkaline Phosphatase 65 U/L (46-116); Anion Gap 7 (7-16); Aspartate Amino Transferase 14 U/L (0-34); BUN/Creatinine Ratio 14 Ratio (12-20); Bilirubin,Total 0.2 mg/dL (0.3-1.2); Blood Urea Nitrogen 41 mg/dL (9-23); Calcium 9.1 mg/dL (8.3-10.6); Calcium (Corrected) 9.1 mg/dL (8.5-10.1); Carbon Dioxide 26.8 mMol/L (20.0-31.0); Chloride 105 mMol/L (98-107); Globulin 2.3 gm/dL (2.3-3.5); Glucose 96 mg/dL (74-106); Osmolality,Calculated 287 (275-295); Potassium 4.8 mMol/L (3.4-5.1); Sodium 139 mMol/L (136-145); Total Protein 6.3 gm/dL (5.7-8.2); eGFR 22 See Note
== END 2024-06-16 23:59 | disposition home or self-care (01) ==
LOC: SCTC 10:59
PROVIDERS: PCP Internal Medicine; Referring Provider Internal Medicine; Visit Provider Internal Medicine Hematology & Oncology
DX: Z51.11 Encounter for antineoplastic chemotherapy (principal); Z51.0 Encounter for antineoplastic radiation therapy; C01 Malignant neoplasm of base of tongue; C77.0 Secondary and unspecified malignant neoplasm of lymph nodes of head, face and neck
CPT/HCPCS: 36415; 36591; 77336; 77385; 80053; 83735; 85025; 96360; 96367; 96368; 96375; 96413; 96415; A4216; J1100; J1200; J1453; J1642; J1940; J2405; J3475; J3480; J3490; J7030; J7040; J7050; J9060

== ENCOUNTER → 2024-07-01 | Outpatient (CLI) | payer BC, SELFPAY ==
--- NOTE | 2024-07-01 11:30 | XR_ITS ---
Examination: Urinary bladder sonography complete TECHNIQUE: Grayscale sonographic images urinary bladder Date and time: July 01, 2024 1039 hours INDICATIONS: Urinary retention this month FINDINGS: No bladder mass or bladder calculi Bladder prevoid volume 78 cc postvoid volume 4 cc Prostate 1.8 x 2.1 x 3.2 cm no prostate nodules IMPRESSION: No bladder mass or bladder calculi Negative for prostatomegaly, negative for prostate nodule
[2024-07-01 14:26] VITALS: BMI 25.9
== END | disposition home or self-care (01) ==
PROVIDERS: PCP Internal Medicine; Referring Provider Internal Medicine Hematology & Oncology; Visit Provider Internal Medicine Hematology & Oncology
DX: R33.9 Retention of urine, unspecified (principal); C01 Malignant neoplasm of base of tongue
CPT/HCPCS: 76857

== ENCOUNTER 2024-07-16 09:58 | Outpatient (RCR) | payer BC, SELFPAY ==
[2024-06-17 11:11] LABS: Alanine Aminotransferase 20 U/L (10-49); Albumin/Globulin Ratio 1.7 (1.2-2.2); Alkaline Phosphatase 63 U/L (46-116); Anion Gap 8 (7-16); Aspartate Amino Transferase 15 U/L (0-34); BUN/Creatinine Ratio 14 Ratio (12-20); Bilirubin,Total 0.2 mg/dL (0.3-1.2); Blood Urea Nitrogen 34 mg/dL (9-23); Calcium 9.3 mg/dL (8.3-10.6); Calcium (Corrected) 9.3 mg/dL (8.5-10.1); Carbon Dioxide 27.1 mMol/L (20.0-31.0); Chloride 105 mMol/L (98-107); Creatinine (Component) 2.5 mg/dL (0.6-1.3); Globulin 2.3 gm/dL (2.3-3.5); Glucose 101 mg/dL (74-106); Osmolality,Calculated 287 (275-295); Potassium 4.9 mMol/L (3.4-5.1); Sodium 140 mMol/L (136-145); Total Protein 6.3 gm/dL (5.7-8.2); eGFR 28 See Note
[2024-06-18 10:10] LABS: Alanine Aminotransferase 19 U/L (10-49); Albumin/Globulin Ratio 1.7 (1.2-2.2); Alkaline Phosphatase 65 U/L (46-116); Anion Gap 10 (7-16); Aspartate Amino Transferase 15 U/L (0-34); BUN/Creatinine Ratio 13 Ratio (12-20); Bilirubin,Total 0.3 mg/dL (0.3-1.2); Blood Urea Nitrogen 29 mg/dL (9-23); Calcium 9.5 mg/dL (8.3-10.6); Calcium (Corrected) 9.5 mg/dL (8.5-10.1); Carbon Dioxide 26.5 mMol/L (20.0-31.0); Chloride 105 mMol/L (98-107); Creatinine (Component) 2.3 mg/dL (0.6-1.3); Globulin 2.4 gm/dL (2.3-3.5); Glucose 108 mg/dL (74-106); Osmolality,Calculated 288 (275-295); Potassium 4.8 mMol/L (3.4-5.1); Sodium 141 mMol/L (136-145); Total Protein 6.4 gm/dL (5.7-8.2); eGFR 31 See Note
[2024-06-21 09:51] LABS: Basophils # (Auto) 0.1 Thou/mm3 (0.0-0.2); Basophils % (Auto) 1 % (0-2.5); Eosinophils # (Auto) 0.2 Thou/mm3 (0.0-0.5); Eosinophils % (Auto) 4 % (0-10); Hematocrit 31.9 % (41.0-53.0); Hemoglobin 11.5 g/dL (13.5-16.0); Immature Granulocytes % (Auto) 1 % (0-0); Immature Granulocytes Auto 0.04 Thou/mm3 (0.00-0.00); Lymphocytes # (Auto) 0.8 Thou/mm3 (1.0-4.8); Lymphocytes % (Auto) 15 % (10-50); Mean Corpuscular HGB Conc 36.1 g/dl (31.0-37.0); Mean Corpuscular Hemoglobin 33.8 pg (25.0-35.0); Mean Corpuscular Volume 94 fL (80-100); Monocytes # (Auto) 0.8 Thou/mm3 (0.0-0.8); Monocytes % (Auto) 16 % (0-12); Neutrophils # (Auto) 3.2 Thou/mm3 (1.8-7.7); Neutrophils % (Auto) 63 % (37-80); Nucleated Red Blood Cell % 0 /100 WBC (0); Platelet Count 161 Thou/mm3 (140-440); RDW Standard Deviation 41.1 fL (35.1-43.9); White Blood Count 5.1 Thou/mm3 (3.8-10.6)
[2024-06-21 10:05] LABS: Magnesium 1.6 mg/dL (1.6-2.6)
[2024-06-21 10:07] LABS: Alanine Aminotransferase 20 U/L (10-49); Albumin, Serum 4.1 gm/dL (3.4-4.8); Albumin/Globulin Ratio 1.7 (1.2-2.2); Alkaline Phosphatase 66 U/L (46-116); Anion Gap 9 (7-16); Aspartate Amino Transferase 15 U/L (0-34); BUN/Creatinine Ratio 11 Ratio (12-20); Bilirubin,Total 0.3 mg/dL (0.3-1.2); Blood Urea Nitrogen 26 mg/dL (9-23); Carbon Dioxide 24.8 mMol/L (20.0-31.0); Chloride 103 mMol/L (98-107); Creatinine (Component) 2.3 mg/dL (0.6-1.3); Globulin 2.4 gm/dL (2.3-3.5); Glucose 102 mg/dL (74-106); Osmolality,Calculated 278 (275-295); Potassium 4.2 mMol/L (3.4-5.1); Sodium 137 mMol/L (136-145); Total Protein 6.5 gm/dL (5.7-8.2); eGFR 31 See Note
[2024-06-28 08:52] LABS: Basophils % (Auto) 0 % (0-2.5); Eosinophils # (Auto) 0.1 Thou/mm3 (0.0-0.5); Eosinophils % (Auto) 1 % (0-10); Hematocrit 33.8 % (41.0-53.0); Immature Granulocytes % (Auto) 0 % (0-0); Immature Granulocytes Auto 0.02 Thou/mm3 (0.00-0.00); Lymphocytes # (Auto) 0.6 Thou/mm3 (1.0-4.8); Lymphocytes % (Auto) 8 % (10-50); Mean Corpuscular HGB Conc 35.5 g/dl (31.0-37.0); Mean Corpuscular Hemoglobin 33.9 pg (25.0-35.0); Mean Corpuscular Volume 96 fL (80-100); Monocytes # (Auto) 0.7 Thou/mm3 (0.0-0.8); Monocytes % (Auto) 9 % (0-12); Neutrophils # (Auto) 6.2 Thou/mm3 (1.8-7.7); Neutrophils % (Auto) 81 % (37-80); Nucleated Red Blood Cell % 0 /100 WBC (0); Platelet Count 172 Thou/mm3 (140-440); RDW Standard Deviation 42.1 fL (35.1-43.9); Red Blood Count 3.54 Miln/mm3 (4.50-5.90); White Blood Count 7.6 Thou/mm3 (3.8-10.6)
[2024-06-28 09:07] LABS: Magnesium 1.6 mg/dL (1.6-2.6)
[2024-06-28 09:09] LABS: Alanine Aminotransferase 36 U/L (10-49); Albumin, Serum 4.2 gm/dL (3.4-4.8); Albumin/Globulin Ratio 1.8 (1.2-2.2); Alkaline Phosphatase 69 U/L (46-116); Anion Gap 8 (7-16); Aspartate Amino Transferase 21 U/L (0-34); BUN/Creatinine Ratio 14 Ratio (12-20); Bilirubin,Total 0.4 mg/dL (0.3-1.2); Blood Urea Nitrogen 27 mg/dL (9-23); Calcium 9.4 mg/dL (8.3-10.6); Calcium (Corrected) 9.4 mg/dL (8.5-10.1); Carbon Dioxide 25.5 mMol/L (20.0-31.0); Chloride 100 mMol/L (98-107); Globulin 2.4 gm/dL (2.3-3.5); Glucose 101 mg/dL (74-106); Osmolality,Calculated 271 (275-295); Potassium 4.2 mMol/L (3.4-5.1); Sodium 133 mMol/L (136-145); Total Protein 6.6 gm/dL (5.7-8.2); eGFR 37 See Note
[2024-07-05 07:50] LABS: Basophils % (Auto) 0 % (0-2.5); Eosinophils # (Auto) 0.1 Thou/mm3 (0.0-0.5); Eosinophils % (Auto) 1 % (0-10); Hematocrit 30.6 % (41.0-53.0); Hemoglobin 10.6 g/dL (13.5-16.0); Immature Granulocytes % (Auto) 0 % (0-0); Immature Granulocytes Auto 0.01 Thou/mm3 (0.00-0.00); Lymphocytes # (Auto) 0.5 Thou/mm3 (1.0-4.8); Lymphocytes % (Auto) 7 % (10-50); Mean Corpuscular HGB Conc 34.6 g/dl (31.0-37.0); Mean Corpuscular Hemoglobin 32.8 pg (25.0-35.0); Mean Corpuscular Volume 95 fL (80-100); Monocytes # (Auto) 0.9 Thou/mm3 (0.0-0.8); Monocytes % (Auto) 12 % (0-12); Neutrophils # (Auto) 5.7 Thou/mm3 (1.8-7.7); Neutrophils % (Auto) 80 % (37-80); Nucleated Red Blood Cell % 0 /100 WBC (0); Platelet Count 222 Thou/mm3 (140-440); RDW Standard Deviation 42.9 fL (35.1-43.9); Red Blood Count 3.23 Miln/mm3 (4.50-5.90); White Blood Count 7.2 Thou/mm3 (3.8-10.6)
[2024-07-05 08:03] LABS: Magnesium 1.5 mg/dL (1.6-2.6)
[2024-07-05 08:04] LABS: Alanine Aminotransferase 23 U/L (10-49); Albumin/Globulin Ratio 1.7 (1.2-2.2); Alkaline Phosphatase 70 U/L (46-116); Anion Gap 10 (7-16); Aspartate Amino Transferase 14 U/L (0-34); BUN/Creatinine Ratio 11 Ratio (12-20); Bilirubin,Total 0.3 mg/dL (0.3-1.2); Blood Urea Nitrogen 24 mg/dL (9-23); Calcium 8.8 mg/dL (8.3-10.6); Calcium (Corrected) 8.8 mg/dL (8.5-10.1); Carbon Dioxide 23.9 mMol/L (20.0-31.0); Chloride 104 mMol/L (98-107); Creatinine (Component) 2.1 mg/dL (0.6-1.3); Globulin 2.4 gm/dL (2.3-3.5); Glucose 150 mg/dL (74-106); Osmolality,Calculated 282 (275-295); Potassium 4.3 mMol/L (3.4-5.1); Sodium 138 mMol/L (136-145); Total Protein 6.4 gm/dL (5.7-8.2); eGFR 35 See Note
[2024-07-07 15:14] LABS: Basophils % (Auto) 0 % (0-2.5); Eosinophils % (Auto) 0 % (0-10); Hematocrit 27.4 % (41.0-53.0); Hemoglobin 9.7 g/dL (13.5-16.0); Immature Granulocytes % (Auto) 1 % (0-0); Immature Granulocytes Auto 0.08 Thou/mm3 (0.00-0.00); Lymphocytes # (Auto) 0.2 Thou/mm3 (1.0-4.8); Lymphocytes % (Auto) 2 % (10-50); Mean Corpuscular HGB Conc 35.4 g/dl (31.0-37.0); Mean Corpuscular Volume 93 fL (80-100); Monocytes # (Auto) 0.6 Thou/mm3 (0.0-0.8); Monocytes % (Auto) 5 % (0-12); Neutrophils # (Auto) 12.3 Thou/mm3 (1.8-7.7); Neutrophils % (Auto) 93 % (37-80); Nucleated Red Blood Cell % 0 /100 WBC (0); Platelet Count 251 Thou/mm3 (140-440); RDW Standard Deviation 42.5 fL (35.1-43.9); Red Blood Count 2.94 Miln/mm3 (4.50-5.90); White Blood Count 13.2 Thou/mm3 (3.8-10.6)
[2024-07-07 15:33] LABS: Alanine Aminotransferase 20 U/L (10-49); Albumin, Serum 4.2 gm/dL (3.4-4.8); Albumin/Globulin Ratio 1.8 (1.2-2.2); Alkaline Phosphatase 68 U/L (46-116); Anion Gap 11 (7-16); Aspartate Amino Transferase 13 U/L (0-34); BUN/Creatinine Ratio 17 Ratio (12-20); Bilirubin,Total 0.3 mg/dL (0.3-1.2); Blood Urea Nitrogen 38 mg/dL (9-23); Carbon Dioxide 21.8 mMol/L (20.0-31.0); Chloride 103 mMol/L (98-107); Creatinine (Component) 2.3 mg/dL (0.6-1.3); Globulin 2.4 gm/dL (2.3-3.5); Glucose 136 mg/dL (74-106); Osmolality,Calculated 282 (275-295); Potassium 4.8 mMol/L (3.4-5.1); Sodium 136 mMol/L (136-145); Total Protein 6.6 gm/dL (5.7-8.2); eGFR 31 See Note
[2024-07-13 11:10] LABS: Basophils % (Auto) 0 % (0-2.5); Eosinophils % (Auto) 1 % (0-10); Hematocrit 28.5 % (41.0-53.0); Immature Granulocytes % (Auto) 0 % (0-0); Immature Granulocytes Auto 0.02 Thou/mm3 (0.00-0.00); Lymphocytes # (Auto) 0.4 Thou/mm3 (1.0-4.8); Lymphocytes % (Auto) 8 % (10-50); Mean Corpuscular HGB Conc 35.1 g/dl (31.0-37.0); Mean Corpuscular Hemoglobin 33.1 pg (25.0-35.0); Mean Corpuscular Volume 94 fL (80-100); Monocytes # (Auto) 0.7 Thou/mm3 (0.0-0.8); Monocytes % (Auto) 12 % (0-12); Neutrophils # (Auto) 4.3 Thou/mm3 (1.8-7.7); Neutrophils % (Auto) 79 % (37-80); Nucleated Red Blood Cell % 0 /100 WBC (0); Platelet Count 222 Thou/mm3 (140-440); RDW Standard Deviation 43.4 fL (35.1-43.9); Red Blood Count 3.02 Miln/mm3 (4.50-5.90); White Blood Count 5.4 Thou/mm3 (3.8-10.6)
[2024-07-13 11:36] LABS: Alanine Aminotransferase 14 U/L (10-49); Albumin, Serum 3.9 gm/dL (3.4-4.8); Alkaline Phosphatase 71 U/L (46-116); Anion Gap 8 (7-16); Aspartate Amino Transferase 11 U/L (0-34); BUN/Creatinine Ratio 15 Ratio (12-20); Bilirubin,Total 0.3 mg/dL (0.3-1.2); Blood Urea Nitrogen 29 mg/dL (9-23); Calcium 8.8 mg/dL (8.3-10.6); Calcium (Corrected) 8.9 mg/dL (8.5-10.1); Carbon Dioxide 27.5 mMol/L (20.0-31.0); Chloride 103 mMol/L (98-107); Creatinine (Component) 1.9 mg/dL (0.6-1.3); Glucose 140 mg/dL (74-106); Magnesium 1.3 mg/dL (1.6-2.6); Osmolality,Calculated 283 (275-295); Potassium 4.5 mMol/L (3.4-5.1); Sodium 138 mMol/L (136-145); Total Protein 5.9 gm/dL (5.7-8.2); eGFR 39 See Note
== END 2024-07-17 23:59 | disposition home or self-care (01) ==
LOC: SCTC 09:58
PROVIDERS: PCP Internal Medicine; Referring Provider Internal Medicine; Visit Provider Internal Medicine Hematology & Oncology
DX: Z51.0 Encounter for antineoplastic radiation therapy (principal); Z51.11 Encounter for antineoplastic chemotherapy; C01 Malignant neoplasm of base of tongue; C77.0 Secondary and unspecified malignant neoplasm of lymph nodes of head, face and neck; K12.33 Oral mucositis (ulcerative) due to radiation; Y84.2 Radiological procedure and radiotherapy as the cause of abnormal reaction of the patient, or of later complication, without mention of misadventure at the time of the procedure
CPT/HCPCS: 36591; 77336; 77385; 80053; 83735; 85025; 96360; 96367; 96368; 96375; 96413; A4216; J1100; J1200; J1453; J1642; J1938; J2150; J2405; J3475; J3480; J3490; J7030; J7040; J7050; J9060; J1940

== ENCOUNTER 2024-08-12 09:26 | Outpatient (RCR) | payer BC, SELFPAY ==
[2024-07-16 11:17] LABS: Basophils % (Auto) 0 % (0-2.5); Eosinophils % (Auto) 0 % (0-10); Hematocrit 25.6 % (41.0-53.0); Hemoglobin 9.2 g/dL (13.5-16.0); Immature Granulocytes % (Auto) 1 % (0-0); Immature Granulocytes Auto 0.05 Thou/mm3 (0.00-0.00); Lymphocytes # (Auto) 0.4 Thou/mm3 (1.0-4.8); Lymphocytes % (Auto) 4 % (10-50); Mean Corpuscular HGB Conc 35.9 g/dl (31.0-37.0); Mean Corpuscular Hemoglobin 33.6 pg (25.0-35.0); Mean Corpuscular Volume 93 fL (80-100); Monocytes # (Auto) 0.9 Thou/mm3 (0.0-0.8); Monocytes % (Auto) 10 % (0-12); Neutrophils # (Auto) 7.9 Thou/mm3 (1.8-7.7); Neutrophils % (Auto) 86 % (37-80); Nucleated Red Blood Cell % 0 /100 WBC (0); Platelet Count 209 Thou/mm3 (140-440); RDW Standard Deviation 43.3 fL (35.1-43.9); Red Blood Count 2.74 Miln/mm3 (4.50-5.90); White Blood Count 9.2 Thou/mm3 (3.8-10.6)
[2024-07-16 11:36] LABS: Alanine Aminotransferase 17 U/L (10-49); Albumin, Serum 3.9 gm/dL (3.4-4.8); Albumin/Globulin Ratio 2.2 (1.2-2.2); Alkaline Phosphatase 63 U/L (46-116); Anion Gap 11 (7-16); Aspartate Amino Transferase 14 U/L (0-34); BUN/Creatinine Ratio 19 Ratio (12-20); Bilirubin,Total 0.2 mg/dL (0.3-1.2); Blood Urea Nitrogen 44 mg/dL (9-23); Calcium 8.9 mg/dL (8.3-10.6); Carbon Dioxide 24.8 mMol/L (20.0-31.0); Chloride 102 mMol/L (98-107); Creatinine (Component) 2.3 mg/dL (0.6-1.3); Globulin 1.8 gm/dL (2.3-3.5); Glucose 106 mg/dL (74-106); Osmolality,Calculated 286 (275-295); Potassium 4.8 mMol/L (3.4-5.1); Sodium 138 mMol/L (136-145); Total Protein 5.7 gm/dL (5.7-8.2); eGFR 31 See Note
--- NOTE | 2024-07-19 10:42 | CTCTRTNOTE_ITS ---
[facility] [address] [place], [place] [address] Weekly Management Date: 07/19/2024 ?? Name: EVELINE MENENDEZ : 1960 A. Patient is currently at 5800 cGy. B. Patient is experiencing moderate mucositis. Moderate weight loss of 5 pounds since last week. Labs 07/16/2024 direct 0.2 WBC hemoglobin 9.2 platelets 209 C. Rest till Friday when he is scheduled for chemo. Patient given following recommendations: Continue with Magic mouthwash.. Electronically signed by: Jordan Chappell M.D. 07/19/2024 10:40 AM
[2024-07-20 11:22] LABS: Basophils % (Auto) 0 % (0-2.5); Eosinophils % (Auto) 0 % (0-10); Hematocrit 24.3 % (41.0-53.0); Immature Granulocytes % (Auto) 0 % (0-0); Immature Granulocytes Auto 0.02 Thou/mm3 (0.00-0.00); Lymphocytes # (Auto) 0.4 Thou/mm3 (1.0-4.8); Lymphocytes % (Auto) 7 % (10-50); Mean Corpuscular HGB Conc 36.2 g/dl (31.0-37.0); Mean Corpuscular Hemoglobin 33.7 pg (25.0-35.0); Mean Corpuscular Volume 93 fL (80-100); Monocytes # (Auto) 0.6 Thou/mm3 (0.0-0.8); Monocytes % (Auto) 9 % (0-12); Neutrophils # (Auto) 5.2 Thou/mm3 (1.8-7.7); Neutrophils % (Auto) 83 % (37-80); Nucleated Red Blood Cell % 0 /100 WBC (0); Platelet Count 199 Thou/mm3 (140-440); RDW Standard Deviation 42.1 fL (35.1-43.9); Red Blood Count 2.61 Miln/mm3 (4.50-5.90); White Blood Count 6.3 Thou/mm3 (3.8-10.6)
[2024-07-20 11:40] LABS: Magnesium 1.3 mg/dL (1.6-2.6)
[2024-07-20 11:42] LABS: Alanine Aminotransferase 13 U/L (10-49); Albumin, Serum 3.8 gm/dL (3.4-4.8); Albumin/Globulin Ratio 2.1 (1.2-2.2); Alkaline Phosphatase 58 U/L (46-116); Anion Gap 10 (7-16); Aspartate Amino Transferase 11 U/L (0-34); BUN/Creatinine Ratio 14 Ratio (12-20); Bilirubin,Total 0.3 mg/dL (0.3-1.2); Blood Urea Nitrogen 26 mg/dL (9-23); Calcium 9.3 mg/dL (8.3-10.6); Calcium (Corrected) 9.5 mg/dL (8.5-10.1); Carbon Dioxide 25.9 mMol/L (20.0-31.0); Chloride 100 mMol/L (98-107); Creatinine (Component) 1.9 mg/dL (0.6-1.3); Globulin 1.8 gm/dL (2.3-3.5); Glucose 137 mg/dL (74-106); Osmolality,Calculated 278 (275-295); Potassium 4.1 mMol/L (3.4-5.1); Sodium 136 mMol/L (136-145); Total Protein 5.6 gm/dL (5.7-8.2); eGFR 39 See Note
[2024-07-20 12:51] LABS: Hemoglobin 8.8 g/dL (13.5-16.0)
[2024-07-26 09:49] LABS: Basophils % (Auto) 0 % (0-2.5); Eosinophils % (Auto) 0 % (0-10); Hematocrit 24.4 % (41.0-53.0); Immature Granulocytes % (Auto) 0 % (0-0); Immature Granulocytes Auto 0.02 Thou/mm3 (0.00-0.00); Lymphocytes # (Auto) 0.3 Thou/mm3 (1.0-4.8); Lymphocytes % (Auto) 6 % (10-50); Mean Corpuscular HGB Conc 34.4 g/dl (31.0-37.0); Mean Corpuscular Hemoglobin 33.1 pg (25.0-35.0); Mean Corpuscular Volume 96 fL (80-100); Monocytes # (Auto) 0.5 Thou/mm3 (0.0-0.8); Monocytes % (Auto) 8 % (0-12); Neutrophils # (Auto) 4.7 Thou/mm3 (1.8-7.7); Neutrophils % (Auto) 85 % (37-80); Nucleated Red Blood Cell % 0 /100 WBC (0); Platelet Count 172 Thou/mm3 (140-440); RDW Standard Deviation 43.7 fL (35.1-43.9); Red Blood Count 2.54 Miln/mm3 (4.50-5.90); White Blood Count 5.6 Thou/mm3 (3.8-10.6)
[2024-07-26 10:00] LABS: Alanine Aminotransferase 37 U/L (10-49); Albumin, Serum 3.8 gm/dL (3.4-4.8); Albumin/Globulin Ratio 2.1 (1.2-2.2); Alkaline Phosphatase 58 U/L (46-116); Anion Gap 10 (7-16); BUN/Creatinine Ratio 14 Ratio (12-20); Bilirubin,Total 0.4 mg/dL (0.3-1.2); Blood Urea Nitrogen 26 mg/dL (9-23); Calcium 8.8 mg/dL (8.3-10.6); Carbon Dioxide 26.4 mMol/L (20.0-31.0); Chloride 99 mMol/L (98-107); Creatinine (Component) 1.8 mg/dL (0.6-1.3); Globulin 1.8 gm/dL (2.3-3.5); Glucose 159 mg/dL (74-106); Hemoglobin 8.4 g/dL (13.5-16.0); Osmolality,Calculated 277 (275-295); Potassium 3.6 mMol/L (3.4-5.1); Sodium 135 mMol/L (136-145); Total Protein 5.6 gm/dL (5.7-8.2); eGFR 42 See Note
[2024-07-27 08:18] LABS: Basophils % (Auto) 0 % (0-2.5); Eosinophils % (Auto) 1 % (0-10); Hematocrit 22.4 % (41.0-53.0); Immature Granulocytes % (Auto) 0 % (0-0); Immature Granulocytes Auto 0.01 Thou/mm3 (0.00-0.00); Lymphocytes # (Auto) 0.4 Thou/mm3 (1.0-4.8); Lymphocytes % (Auto) 9 % (10-50); Mean Corpuscular HGB Conc 35.7 g/dl (31.0-37.0); Mean Corpuscular Hemoglobin 33.1 pg (25.0-35.0); Mean Corpuscular Volume 93 fL (80-100); Monocytes # (Auto) 0.4 Thou/mm3 (0.0-0.8); Monocytes % (Auto) 10 % (0-12); Neutrophils # (Auto) 3.4 Thou/mm3 (1.8-7.7); Neutrophils % (Auto) 80 % (37-80); Nucleated Red Blood Cell % 0 /100 WBC (0); Platelet Count 157 Thou/mm3 (140-440); RDW Standard Deviation 42.5 fL (35.1-43.9); Red Blood Count 2.42 Miln/mm3 (4.50-5.90); White Blood Count 4.3 Thou/mm3 (3.8-10.6)
[2024-07-27 08:35] LABS: Alanine Aminotransferase 43 U/L (10-49); Albumin, Serum 3.6 gm/dL (3.4-4.8); Alkaline Phosphatase 59 U/L (46-116); Anion Gap 9 (7-16); Aspartate Amino Transferase 24 U/L (0-34); BUN/Creatinine Ratio 15 Ratio (12-20); Bilirubin,Total 0.3 mg/dL (0.3-1.2); Blood Urea Nitrogen 25 mg/dL (9-23); Calcium 8.5 mg/dL (8.3-10.6); Calcium (Corrected) 8.8 mg/dL (8.5-10.1); Carbon Dioxide 26.3 mMol/L (20.0-31.0); Chloride 105 mMol/L (98-107); Creatinine (Component) 1.7 mg/dL (0.6-1.3); Globulin 1.8 gm/dL (2.3-3.5); Glucose 101 mg/dL (74-106); Osmolality,Calculated 283 (275-295); Potassium 4.1 mMol/L (3.4-5.1); Sodium 140 mMol/L (136-145); Total Protein 5.4 gm/dL (5.7-8.2); eGFR 44 See Note
[2024-07-27 09:29] LABS: Magnesium 1.2 mg/dL (1.6-2.6)
[2024-07-29 07:55] LABS: Magnesium 1.8 mg/dL (1.6-2.6)
[2024-08-02 09:49] LABS: Magnesium 1.2 mg/dL (1.6-2.6)
[2024-08-03 11:44] LABS: Basophils % (Auto) 0 % (0-2.5); Eosinophils % (Auto) 0 % (0-10); Hematocrit 21.3 % (41.0-53.0); Immature Granulocytes % (Auto) 0 % (0-0); Immature Granulocytes Auto 0.01 Thou/mm3 (0.00-0.00); Lymphocytes # (Auto) 0.3 Thou/mm3 (1.0-4.8); Lymphocytes % (Auto) 9 % (10-50); Mean Corpuscular HGB Conc 36.2 g/dl (31.0-37.0); Mean Corpuscular Hemoglobin 34.1 pg (25.0-35.0); Mean Corpuscular Volume 94 fL (80-100); Monocytes # (Auto) 0.3 Thou/mm3 (0.0-0.8); Monocytes % (Auto) 12 % (0-12); Neutrophils # (Auto) 2.3 Thou/mm3 (1.8-7.7); Neutrophils % (Auto) 79 % (37-80); Nucleated Red Blood Cell % 0 /100 WBC (0); Platelet Count 129 Thou/mm3 (140-440); RDW Standard Deviation 43.9 fL (35.1-43.9); Red Blood Count 2.26 Miln/mm3 (4.50-5.90)
[2024-08-03 12:00] LABS: Hemoglobin 7.7 g/dL (13.5-16.0); White Blood Count 2.9 Thou/mm3 (3.8-10.6)
[2024-08-03 12:04] LABS: Alanine Aminotransferase 36 U/L (10-49); Albumin, Serum 3.8 gm/dL (3.4-4.8); Albumin/Globulin Ratio 2.1 (1.2-2.2); Alkaline Phosphatase 65 U/L (46-116); Anion Gap 9 (7-16); Aspartate Amino Transferase 16 U/L (0-34); BUN/Creatinine Ratio 15 Ratio (12-20); Bilirubin,Total 0.3 mg/dL (0.3-1.2); Blood Urea Nitrogen 25 mg/dL (9-23); Calcium 8.5 mg/dL (8.3-10.6); Calcium (Corrected) 8.7 mg/dL (8.5-10.1); Carbon Dioxide 27.6 mMol/L (20.0-31.0); Chloride 102 mMol/L (98-107); Creatinine (Component) 1.7 mg/dL (0.6-1.3); Globulin 1.8 gm/dL (2.3-3.5); Glucose 96 mg/dL (74-106); Magnesium 1.6 mg/dL (1.6-2.6); Osmolality,Calculated 281 (275-295); Potassium 3.8 mMol/L (3.4-5.1); Sodium 139 mMol/L (136-145); Total Protein 5.6 gm/dL (5.7-8.2); eGFR 44 See Note
[2024-08-10 07:42] LABS: Basophils % (Auto) 0 % (0-2.5); Eosinophils % (Auto) 1 % (0-10); Hematocrit 25.5 % (41.0-53.0); Immature Granulocytes % (Auto) 0 % (0-0); Lymphocytes # (Auto) 0.3 Thou/mm3 (1.0-4.8); Lymphocytes % (Auto) 13 % (10-50); Mean Corpuscular HGB Conc 35.3 g/dl (31.0-37.0); Mean Corpuscular Hemoglobin 31.6 pg (25.0-35.0); Mean Corpuscular Volume 90 fL (80-100); Monocytes # (Auto) 0.3 Thou/mm3 (0.0-0.8); Monocytes % (Auto) 12 % (0-12); Neutrophils # (Auto) 1.7 Thou/mm3 (1.8-7.7); Neutrophils % (Auto) 74 % (37-80); Nucleated Red Blood Cell % 0 /100 WBC (0); Platelet Count 160 Thou/mm3 (140-440); RDW Standard Deviation 43.2 fL (35.1-43.9); Red Blood Count 2.85 Miln/mm3 (4.50-5.90)
[2024-08-10 07:57] LABS: White Blood Count 2.2 Thou/mm3 (3.8-10.6)
[2024-08-10 08:11] LABS: Alanine Aminotransferase 26 U/L (10-49); Albumin, Serum 3.9 gm/dL (3.4-4.8); Albumin/Globulin Ratio 2.1 (1.2-2.2); Alkaline Phosphatase 69 U/L (46-116); Anion Gap 9 (7-16); Aspartate Amino Transferase 20 U/L (0-34); BUN/Creatinine Ratio 12 Ratio (12-20); Bilirubin,Total 0.3 mg/dL (0.3-1.2); Blood Urea Nitrogen 23 mg/dL (9-23); Calcium 8.9 mg/dL (8.3-10.6); Carbon Dioxide 27.3 mMol/L (20.0-31.0); Chloride 100 mMol/L (98-107); Globulin 1.9 gm/dL (2.3-3.5); Glucose 187 mg/dL (74-106); Osmolality,Calculated 280 (275-295); Potassium 3.4 mMol/L (3.4-5.1); Sodium 136 mMol/L (136-145); Total Protein 5.8 gm/dL (5.7-8.2); eGFR 37 See Note
[2024-08-12 11:08] LABS: Magnesium 1.4 mg/dL (1.6-2.6)
[2024-08-12 11:11] LABS: Alanine Aminotransferase 23 U/L (10-49); Alkaline Phosphatase 73 U/L (46-116); Anion Gap 8 (7-16); Aspartate Amino Transferase 18 U/L (0-34); BUN/Creatinine Ratio 11 Ratio (12-20); Bilirubin,Total 0.3 mg/dL (0.3-1.2); Blood Urea Nitrogen 21 mg/dL (9-23); Carbon Dioxide 26.8 mMol/L (20.0-31.0); Chloride 102 mMol/L (98-107); Creatinine (Component) 1.9 mg/dL (0.6-1.3); Glucose 213 mg/dL (74-106); Osmolality,Calculated 282 (275-295); Potassium 3.8 mMol/L (3.4-5.1); Sodium 137 mMol/L (136-145); eGFR 39 See Note
--- NOTE | 2024-08-12 12:57 | CTCFLWUP_ITS ---
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 Bora Wyatt, a post-chemotherapy patient, presented with difficulty eating, hearing loss, vision changes, and dizziness. His history includes cancer treatment with cisplatin. He reported gradual improvement (2-3% daily) over the past 6 days with salivary gland recovery evidenced by foamy spit. Hearing loss had worsened to approximately 50% with increased sensitivity to high-pitched sounds. Creatinine increased from 1.7 to 2.0, while magnesium normalized. Management included IV fluids administration, nutritional counseling for soft, high-protein foods, recommendations for oral care with and plans for CT scan one month post-radiation with comprehensive bloodwork. ONCOLOGY HISTORY: DIAGNOSIS: Malignant neoplasm of base of tongue [ICD10] C01 Squamous cell carcinoma of the base of the tongue DATE OF DIAGNOSIS: 03/16/2024 STAGE/TNM: T4 N1 M0 TREATMENT HISTORY: Care?Plan Start?Date Cycle Day Intent CISplatin?100mg/m*2?with?XRT 05/24/2024 1 21 Curative?(primary) CISplatin?40?mg/m*2?+?Radiation?Therapy?-?Primary,?Adj,?Rec?1 06/22/2024 1 7 Palliative HISTORY OF PRESENT ILLNESS: 63-year-old male Chief Complaint Difficulty eating and drinking, hearing loss, vision changes, dizziness, taste changes History of Present Illness Bora Wyatt, a patient with a history of cancer treatment, presents for follow- up after recent chemotherapy and radiation therapy. He reports ongoing symptoms related to treatment side effects and recovery. The patient describes feeling 2-3% better each day over the past 6 days. He is experiencing difficulty swallowing and reports a sensation of foamy spit in the back of his throat, which the clinician interprets as a sign of salivary gland recovery. Edmundo mentions significant hearing loss, estimating it at about 50%, which has worsened since his last treatment session. He describes the hearing loss as different from before, with less ringing but increased sensitivity to high-pitched sounds like shower drips. The patient also reports vision changes, attributing them to chemotherapy effects. Edmundo is struggling with nutrition and weight loss. He finds it challenging to consume protein shakes, describing them as too thick and difficult to swallow. He has been attempting to eat soft foods like milk-soaked bread and scrambled eggs but can only manage small amounts. The patient reports being able to eat about half a slice of bread soaked in milk and one egg. He mentions difficulty with store-bought puddings and fruits due to sensitivity to artificial flavors. The patient's kidney function has been a concern, with recent improvement noted but ongoing monitoring required. Edmundo also reports occasional dizziness, which he attributes to inadequate nutrition. He denies current use of magnesium supplements. The patient confirms he still has a port in place for IV access. Regarding lifestyle, Edmundo mentions he lives alone with five dogs and is responsible for his own cooking and care. He expresses a desire to regain muscle mass and improve his overall nutrition to support his recovery. Medications and Supplements - Cisplatin - Discontinued. - Protein powder - Patient reports difficulty consuming protein shakes. - Multivitamin - Magnesium Review of Systems General: Positive for fatigue, decreased appetite, and weight loss. HEENT: Positive for hearing loss, vision changes, and difficulty swallowing. Negative for sore throat. Gastrointestinal: Positive for difficulty eating. Neurological: Positive for dizziness. OTHER MEDICAL HISTORY/CONDITIONS: TONGUE CANCER DIABETES ASTHMA HYPERTENSION CHOLECYSTECTOMY 2012 RIGHT KNEE REPAIR 2016 FAMILY HISTORY: Father:?DENIES Mother:?DENIES Sibling:?SISTER?LICHEN?SCLEROSUS Children:?DENIES Cancer?History:?TONGUE?CANCER SOCIAL HISTORY: Occupational?History:?[employer] Education?Level:?Attended College, did not graduate Marital?Status:? Tobacco?Pack?per?Day:?0 Tobacco?Use?Years:?3 Tobacco Use:?DENIES , SMOKED FOR 3 YEARS IN 90S ETOH?Use:?DAILY?LIQUOR Drug?Note:?DENIES Social?History?Note:?LIVES?ALONE MEDICATIONS: 1. Emend - 125 mg (1)- 80 mg (2) 1 Pack Daily 2. ondansetron - 8 mg 8 mg Daily 3. prochlorperazine maleate - 5 mg 1 tab Daily Medications Last Reconciled by Lakshmi Geller MA on 08/12/2024 ALLERGIES: No Known Allergies REVIEW OF SYSTEMS: A complete 14-point review of systems was performed and is negative except as noted in interval history. PHYSICAL EXAMINATION: VITAL SIGNS: Temperature?98.1, B/P?123/79, Oxygen?Saturation?97% Weight?151?lbs (Change?since?08/11/24:?-1?lbs) PAIN: 6 - Severe pain ECOG Performance Status: 2 - Symptomatic; ambulatory; capable of self-care; >50% of waking hrs. not in bed GENERAL APPEARANCE appears dehydrated with sunken eyes and shriveled skin. HEENT: Normocephalic, have temporal wasting, normal conjunctiva, no scleral icterus, normal hearing, lips without lesions, neck normal range of motion. Large mass visible of by the open mouth coming from the back of the tongue CARDIOVASCULAR: Not assessed. PULMONARY: Normal respiratory effort, no respiratory distress or use of accessory muscles, speaking in full sentences, no tachypnea. EXTREMITIES: No pedal edema or cyanosis. SKIN: Dry skin appearance. NEUROLOGIC: Alert and oriented x4. PSHYCHIATRIC: Appropriate affect, mood normal, behavior normal, intact thought and speech. LABORATORY DATA: I have personally reviewed and interpreted each of the patient?s relevant lab tests, abnormal findings are below: Date 08/10/24 08/12/24 ??WHITE?BLOOD?COUNT?(Thou/mm3) 2.2?L ? ??RED?BLOOD?COUNT?(Miln/mm3) 2.85?L ? ??HEMOGLOBIN?(gm/dl) 9.0?L ? ??HEMATOCRIT?(%) 25.5?L ? ??PLATELET?COUNT?(Thou/mm3) 160 ? ??NEUTROPHILS?%,?AUTO?(%) 74 ? ??LYMPH?%,?AUTO?(%) 13 ? ??NEUTROPHILS,?AUTO?(Thou/mm3) 1.7?L ? ??GLUCOSE,RANDOM?(mg/dL) 187?H 213?H ??BLOOD?UREA?NITROGEN?(mg/dL) 23 21 ??CREATININE?(mg/dL) 2.00?H 1.90?H ??SODIUM?(mmol/L) 136 137 ??POTASSIUM?(mmol/L) 3.4 3.8 ??CHLORIDE?(mmol/L) 100 102 ??CrCl?(CandG)?(ml/min) 36.96 38.05 ??AST/SGOT?(Unit/L) 20 18 ??ALT/SGPT?(Unit/L) 26 23 ??ALKALINE?PHOSPHATASE?(Unit/L) 69 73 ??BILIRUBIN,?TOTAL?(mg/dL) 0.3 0.3 ??PROTEIN?TOTAL?(gm/dl) 5.8 6.0 ??ALBUMIN,?SERUM?(gm/dl) 3.9 4.0 ??GLOBULIN?(gm/dl) 1.9?L 2.0?L ??ALBUMIN/GLOBULIN?RATIO 2.1 2.0 ??CALCIUM,?SERUM?(mg/dL) 8.9 9.0 ??CALCIUM?SERUM?(CORRECTED)?(mg/dL) 9.0 9.0 ??MAGNESIUM?(mg/dL) ? 1.4?L Physical Examination HEENT: Salivary glands appear to be recovering and functioning. Gums observed during examination. 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 of the mouth vallecula and neck Treated with concurrent chemoradiation Have port catheter in place Will send for lpn care manager to see if patient can get hearing device Patient did not agree to get PEG tube and have difficulty with the nutrition Will send for nutrition counseling Extensively counseled and reiterated importance of oral intake For dehydration, will give IV fluids Encouraged oral hydration Will replace magnesium Advised to start taking multivitamin with Multiminerals containing magnesium Will do CT scan neck and chest in 4 weeks since the last radiation to see response to treatment and patient advised to follow-up with his oral surgeon ORDERS: Order # Description [id number] CT Scan + Neck + Chest [id number] MD Follow Up 2 Months + Comprehensive Metabolic Panel - 12 + CBC with Auto Diff [id number] RETURN TO CLINIC: BILLING AND COMPLIANCE: I reviewed external records from providers outside my specialty as summarized above. I spent a total of 50 minutes on this patient?s care on the day of their visit excluding time spent related to any billed procedures. This time includes time spent with the patient as well as time spent documenting in the medical record, reviewing patients records and tests, obtaining history, placing orders, communicating with other healthcare professionals, counseling the patient, family or caregiver, and/or care coordination for the diagnoses above. Electronically Signed by: Corwin Frank MD T: 12:55 PM CC: PCP: Natalie Jeffery Referring: Natalie Jeffery This document was completed utilizing speech recognition software. Grammatical errors, random word insertions, pronoun errors, and incomplete sentences are an occasional consequence of this system due to software limitations, ambient noise, and hardware issues. Any formal questions or concerns about the content, text or information contained within the body of this dictation should be directly addressed to the provider for clarification.
== END 2024-08-16 23:59 | disposition home or self-care (01) ==
LOC: SCTC 09:26
PROVIDERS: PCP Internal Medicine; Referring Provider Internal Medicine; Visit Provider Internal Medicine Hematology & Oncology
DX: Z51.11 Encounter for antineoplastic chemotherapy (principal); Z51.0 Encounter for antineoplastic radiation therapy; C01 Malignant neoplasm of base of tongue; K12.33 Oral mucositis (ulcerative) due to radiation; Y84.2 Radiological procedure and radiotherapy as the cause of abnormal reaction of the patient, or of later complication, without mention of misadventure at the time of the procedure; H91.90 Unspecified hearing loss, unspecified ear; E86.0 Dehydration; R42 Dizziness and giddiness
CPT/HCPCS: 36430; 36591; 77385; 80053; 83735; 84450; 85025; 86850; 86900; 86901; 86923; 96360; 96361; 96365; 96366; 96367; 96368; 96375; 96413; 99212; A4216; J1100; J1200; J1453; J1642; J1938; J2150; J2405; J3475; J3480; J7030; J7040; J7050; J9060; P9016; G0463; J1940

== ENCOUNTER 2024-09-15 08:00 | Outpatient (RCR) | payer BC, SELFPAY ==
--- NOTE | 2024-08-30 15:16 | CTCFLWUP_ITS ---
[facility] [address] [place], [place] [address] FOLLOW-UP NOTE Date: 08/30/2024 MR#: [id number] Name: EVELINE MENENDEZ : 1960 Dx: C01 Malignant neoplasm of base of tongue Identification. Patient with p16 positive cT4N1 oropharyngeal CA involving base of tongue with send to the floor of the mouth vallecula with neck mets. 7000 cGy 05/24/2024 through 07/28/2024 with concurrent cisplatin. Has both CT and PET scan ordered and pending. Made an appointment today because of concern about growth in left-sided tongue and right lower neck. The area of the left sided tongue appears slightly swollen consistent with prior radiation reaction with no sign of recurrence. Right lower neck approximately 1 x 1/2 cm lymph node just popped up a few days ago according to patient. Elected to put patient on Keflex 500 mg every 6 10 days. Evaluate patient again in 2 weeks. Electronically signed by: Jordan Chappell M.D. 08/30/2024 3:14 PM
[2024-09-15 09:39] LABS: Alanine Aminotransferase 9 U/L (10-49); Albumin, Serum 3.9 gm/dL (3.4-4.8); Albumin/Globulin Ratio 1.9 (1.2-2.2); Alkaline Phosphatase 60 U/L (46-116); Anion Gap 7 (7-16); Aspartate Amino Transferase 15 U/L (0-34); BUN/Creatinine Ratio 12 Ratio (12-20); Bilirubin,Total 0.4 mg/dL (0.3-1.2); Blood Urea Nitrogen 24 mg/dL (9-23); Calcium 9.1 mg/dL (8.3-10.6); Calcium (Corrected) 9.2 mg/dL (8.5-10.1); Carbon Dioxide 25.0 mMol/L (20.0-31.0); Chloride 108 mMol/L (98-107); Creatinine (Component) 2.0 mg/dL (0.6-1.3); Globulin 2.1 gm/dL (2.3-3.5); Glucose 134 mg/dL (74-106); Osmolality,Calculated 285 (275-295); Potassium 4.7 mMol/L (3.4-5.1); Sodium 140 mMol/L (136-145); Total Protein 6.0 gm/dL (5.7-8.2); eGFR 36 See Note
== END 2024-09-16 23:59 | disposition home or self-care (01) ==
LOC: SCTC 08:00
PROVIDERS: Internal Medicine Hematology & Oncology; PCP Internal Medicine; Referring Provider Internal Medicine; Visit Provider Radiology Therapeutic Radiology
DX: C10.9 Malignant neoplasm of oropharynx, unspecified (principal); C77.0 Secondary and unspecified malignant neoplasm of lymph nodes of head, face and neck; C79.89 Secondary malignant neoplasm of other specified sites; Z92.3 Personal history of irradiation; Z92.21 Personal history of antineoplastic chemotherapy
CPT/HCPCS: 36591; 80053; 99212; 99213; A4216; J1642; G0463

== ENCOUNTER → 2024-09-17 | Outpatient (CLI) | payer MEDICARE, BC, SELFPAY ==
--- NOTE | 2024-09-17 08:00 | XR_ITS ---
EXAMINATION: PET/CT FUSION SKULL TO THIGH EXAM DATE AND TIME: September 17, 2024, 0903 hours Comparison outside PET CT scan April 08, 2024 INDICATIONS: Diagnosis cancer base of the tongue, restaging post treatment CTDI:vol (mGy) 4.80 DLP: (mGycm) 498 PROCEDURE: 17.1 mCi FDG was administered intravenously To allow for distribution and uptake of radiotracer, the patient was allowed to rest quietly in a shielded room. Imaging was performed on an integrated 16-slice PET/CT scanner, with scanning from the skull base to the mid thigh. Serum blood glucose at the time of the injection was measured 92 mg/dL. CT scanning was performed without oral or intravenous contrast material. FINDINGS: Head and Neck: Weakly hypermetabolic activity anterior tongue axial image 54, measuring 12 x 10 mm Chest: There is no garland hypermetabolism in the chest. There are no pulmonary nodules. Abdomen and Pelvis: There is no garland hypermetabolism in retroperitoneal or pelvic chains. The spleen is normal in size and FDG avidity. Musculoskeletal: Marrow uptake is within normal range. IMPRESSION: 12 x 10 mm anterior tongue weakly hypermetabolic activity, recommend correlation with MRI of orbits face neck pre and post contrast follow-up
== END | disposition home or self-care (01) ==
LOC: CDIM 07:46
PROVIDERS: PCP Internal Medicine; Referring Provider Radiology Therapeutic Radiology; Visit Provider Radiology Therapeutic Radiology
DX: C01 Malignant neoplasm of base of tongue (principal)
CPT/HCPCS: 78815; A9552

== ENCOUNTER 2024-10-12 09:46 | Outpatient (RCR) | payer MEDICARE, BC, SELFPAY ==
--- NOTE | 2024-10-12 12:20 | CTCFLWUP_ITS ---
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 Patient had a PET/CT scan which showed a small area on the tongue which is mildly hypermetabolic. Patient had Matera testing done which is negative. Patient still have issues with his teeth for which he is going to see the dentist. Patient has been using oral hydration as well as massaging his gums with the coconut oil as prescribed at the last visit being a good oral hygiene. Patient is yet to see the ENT specialist. Patient has see his radiation oncologist recently. Bora is here to follow-up on the PET CT scan. PET CT scan showed a 12 x 10 mm anterior tongue weekly hypermetabolic activity. Recommend correlation with MRI of the orbits face neck pre and postcontrast follow-up. He is experiencing difficulty swallowing and reports a sensation of foamy spit in the back of his throat, which the clinician interprets as a sign of salivary gland recovery. Edmundo mentions significant hearing loss, estimating it at about 50%, which has worsened since his last treatment session. He describes the hearing loss as different from before, with less ringing but increased sensitivity to high-pitched sounds like shower drips. The patient also reports vision changes, attributing them to chemotherapy effects. Edmundo is struggling with nutrition and weight loss. He finds it challenging to consume protein shakes, describing them as too thick and difficult to swallow. He has been attempting to eat soft foods like milk-soaked bread and scrambled eggs but can only manage small amounts. The patient reports being able to eat about half a slice of bread soaked in milk and one egg. He mentions difficulty with store-bought puddings and fruits due to sensitivity to artificial flavors. The patient's kidney function has been a concern, with recent improvement noted but ongoing monitoring required. Edmundo also reports occasional dizziness, which he attributes to inadequate nutrition. He denies current use of magnesium supplements. The patient confirms he still has a port in place for IV access. Regarding lifestyle, Edmundo mentions he lives alone with five dogs and is responsible for his own cooking and care. He expresses a desire to regain muscle mass and improve his overall nutrition to support his recovery. Medications and Supplements - Cisplatin - Discontinued. - Protein powder - Patient reports difficulty consuming protein shakes. - Multivitamin - Magnesium Review of Systems General: Positive for fatigue, decreased appetite, and weight loss. HEENT: Positive for hearing loss, vision changes, and difficulty swallowing. Negative for sore throat. Gastrointestinal: Positive for difficulty eating. Neurological: Positive for dizziness. OTHER MEDICAL HISTORY/CONDITIONS: TONGUE CANCER DIABETES ASTHMA HYPERTENSION CHOLECYSTECTOMY 2012 RIGHT KNEE REPAIR 2017 FAMILY HISTORY: Father:?DENIES Mother:?DENIES Sibling:?SISTER?LICHEN?SCLEROSUS Children:?DENIES Cancer?History:?TONGUE?CANCER SOCIAL HISTORY: Occupational?History:?[employer] Education?Level:?Attended College, did not graduate Marital?Status:? Tobacco?Pack?per?Day:?0 Tobacco?Use?Years:?3 Tobacco Use:?DENIES , SMOKED FOR 3 YEARS IN 90S ETOH?Use:?DAILY?LIQUOR Drug?Note:?DENIES Social?History?Note:?LIVES?ALONE MEDICATIONS: 1. cephALEXin - 250 mg 1 tab q6 2. Emend - 125 mg (1)- 80 mg (2) 1 Pack Daily 3. ondansetron - 8 mg 8 mg Daily 4. prochlorperazine maleate - 5 mg 1 tab Daily Medications Last Reconciled by Lakshmi Parrish MD on 10/12/2024 ALLERGIES: No Known Allergies REVIEW OF SYSTEMS: A complete 14-point review of systems was performed and is negative except as noted in interval history. PHYSICAL EXAMINATION: VITAL SIGNS: PAIN: 0 - No pain ECOG Performance Status: 1 - Symptomatic; ambulatory; restricted in strenuous activity GENERAL APPEARANCE appears dehydrated with sunken eyes and shriveled skin. HEENT: Normocephalic, have temporal wasting, normal conjunctiva, no scleral icterus, normal hearing, lips without lesions, neck normal range of motion. Large mass visible of by the open mouth coming from the back of the tongue CARDIOVASCULAR: Not assessed. PULMONARY: Normal respiratory effort, no respiratory distress or use of accessory muscles, speaking in full sentences, no tachypnea. EXTREMITIES: No pedal edema or cyanosis. SKIN: Dry skin appearance. NEUROLOGIC: Alert and oriented x4. PSHYCHIATRIC: Appropriate affect, mood normal, behavior normal, intact thought and speech. LABORATORY DATA: I have personally reviewed and interpreted each of the patient?s relevant lab tests, abnormal findings are below: Date 08/10/24 08/12/24 09/15/24 ??WHITE?BLOOD?COUNT?(Thou/mm3) 2.2?L ?RED?BLOOD?COUNT?(Miln/mm3) 2.85?L ?HEMOGLOBIN?(gm/dl) 9.0?L ?HEMATOCRIT?(%) 25.5?L ?PLATELET?COUNT?(Thou/mm3) 160 ?NEUTROPHILS?%,?AUTO?(%) 74 ?LYMPH?%,?AUTO?(%) 13 ?NEUTROPHILS,?AUTO?(Thou/mm3) 1.7?L ?GLUCOSE,RANDOM?(mg/dL) ? 213?H 134?H ??BLOOD?UREA?NITROGEN?(mg/dL) ? 21 24?H ??CREATININE?(mg/dL) ? 1.90?H 2.00?H ??SODIUM?(mmol/L) ? 137 140 ??POTASSIUM?(mmol/L) ? 3.8 4.7 ??CHLORIDE?(mmol/L) ? 102 108?H ??CrCl?(CandG)?(ml/min) ? 38.05 35.44 ??AST/SGOT?(Unit/L) ? 18 15 ??ALT/SGPT?(Unit/L) ? 23 9?L ??ALKALINE?PHOSPHATASE?(Unit/L) ? 73 60 ??BILIRUBIN,?TOTAL?(mg/dL) ? 0.3 0.4 ??PROTEIN?TOTAL?(gm/dl) ? 6.0 6.0 ??ALBUMIN,?SERUM?(gm/dl) ? 4.0 3.9 ??GLOBULIN?(gm/dl) ? 2.0?L 2.1?L ??ALBUMIN/GLOBULIN?RATIO ? 2.0 1.9 ??CALCIUM,?SERUM?(mg/dL) ? 9.0 9.1 ??CALCIUM?SERUM?(CORRECTED)?(mg/dL) ? 9.0 9.2 ??MAGNESIUM?(mg/dL) ? 1.4?L ? 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 with extension to the floor of the mouth vallecula and neck Treated with concurrent chemoradiation Will send for human factors engineer to see if patient can get hearing device Patient did not agree to get PEG tube and have difficulty with the nutrition nutrition counseling/ent referrel /human factors engineer for hearing aid ordered Extensively counseled and reiterated importance of oral intake Advised to start taking multivitamin with Multiminerals containing magnesium Will do MRI as radiology recommendation ORDERS: Order # Description [id number] Comprehensive Metabolic Panel - 12 + CBC with Auto Diff [id number] MD Follow Up 6 Month [id number] MRI [id number] RETURN TO CLINIC: I reviewed the diagnosis, prognosis, and recommended treatment/procedure options with the patient (and/or their legal customer relations representative), including the potential benefits, risks, side effects and alternative therapies. We also discussed the option of no treatment and the possibility of clinical trial participation, if applicable. All questions were addressed, and they demonstrated understanding. They provided informed consent to proceed with the proposed plan of care. BILLING AND COMPLIANCE: I reviewed external records from providers outside my specialty as summarized above. I spent a total of 50 minutes on this patient?s care on the day of their visit excluding time spent related to any billed procedures. This time includes time spent with the patient as well as time spent documenting in the medical record, reviewing patients records and tests, obtaining history, placing orders, communicating with other healthcare professionals, counseling the patient, family or caregiver, and/or care coordination for the diagnoses above. Electronically Signed by: {Object.Sanct_ID*PnP.NameFL@M}, {Object.Sanct_ID*PnP.Suffix@U} D: {Object.Sanct_Date} T: {Object.Sanct_Time} CC: PCP: Natalei Jeffery Referring: Natalie Jeffery This document was completed utilizing speech recognition software. Grammatical errors, random word insertions, pronoun errors, and incomplete sentences are an occasional consequence of this system due to software limitations, ambient noise, and hardware issues. Any formal questions or concerns about the content, text or information contained within the body of this dictation should be directly addressed to the provider for clarification.
== END 2024-10-17 23:59 | disposition home or self-care (01) ==
LOC: SCTC 09:46
PROVIDERS: PCP Internal Medicine; Referring Provider Internal Medicine; Visit Provider Internal Medicine Hematology & Oncology
DX: C01 Malignant neoplasm of base of tongue (principal); Z92.3 Personal history of irradiation; Z92.21 Personal history of antineoplastic chemotherapy
CPT/HCPCS: 99212; G0463

== ENCOUNTER → 2024-12-21 | Outpatient (CLI) | payer MEDICARE, SELFPAY ==
[2024-12-21 11:21] LABS: Misc Send Out* See Sep Rpt
[2024-12-21 11:27] LABS: Collection Type, Urine Clean Catch; Squamous Epithelial Cell,Urine 0 /hpf (0-5)
[2024-12-21 11:43] LABS: Basophils # (Auto) 0.0 Thou/mm3 (0.0-0.2); Basophils % (Auto) 1 % (0-2.5); Eosinophils # (Auto) 0.1 Thou/mm3 (0.0-0.5); Eosinophils % (Auto) 1 % (0-10); Hematocrit 39.9 % (41.0-53.0); Hemoglobin 13.4 g/dL (13.5-16.0); Immature Granulocytes Auto 0.01 Thou/mm3 (0.00-0.00); Lymphocytes # (Auto) 0.6 Thou/mm3 (1.0-4.8); Lymphocytes % (Auto) 10 % (10-50); Mean Corpuscular HGB Conc 33.6 g/dl (31.0-37.0); Mean Corpuscular Hemoglobin 33.5 pg (25.0-35.0); Mean Corpuscular Volume 100 fL (80-100); Monocytes # (Auto) 0.7 Thou/mm3 (0.0-0.8); Monocytes % (Auto) 12 % (0-12); Neutrophils # (Auto) 4.7 Thou/mm3 (1.8-7.7); Neutrophils % (Auto) 77 % (37-80); Nucleated Red Blood Cell # 0.00 Thou/mm3 (0.00-0.00); Nucleated Red Blood Cell % 0 /100 WBC (0); Platelet Count 208 Thou/mm3 (140-440); RDW Standard Deviation 46.1 fL (35.1-43.9); Red Blood Count 4.00 Miln/mm3 (4.50-5.90); White Blood Count 6.0 Thou/mm3 (3.8-10.6)
[2024-12-21 11:54] LABS: Bilirubin,Urine Negative (Negative); Blood,Urine Negative (Negative); Clarity,Urine Clear (Clear/Hazy); Color,Urine Lt-Yellow (Lt Yel-Yel); Glucose, Urine Negative (Negative); Ketones,Urine Negative (Negative); Leukocyte Esterase,Urine Negative (Negative); Nitrite,Urine Negative (Negative); PH,Urine 5.5 (5.0-7.0); Protein,Urine Trace (Neg - Trace); RBC,Urine 1 /hpf (0-3); Specific Gravity,Urine 1.016 (1.001-1.035); Urobilinogen,Urine Negative mg/dL (0.0-1.0); WBC,Urine 1 /hpf (0-5)
[2024-12-21 11:57] LABS: Creatinine MALB Rnd Ur 160 mg/dL (30-125); Microalbumin Creat Ratio 9 mg/gCrea (<30); Microalbumin, Random Urine 15 mg/L (0-300)
[2024-12-21 12:33] LABS: Glucose Estimated Average 120 mg/dL (80-131); Hemoglobin A1C 5.8 % Hgb (4.8-6.0)
[2024-12-21 12:35] LABS: Alanine Aminotransferase < 7 U/L (10-49); Albumin, Serum 4.7 gm/dL (3.4-4.8); Albumin/Globulin Ratio 2.0 (1.2-2.2); Alkaline Phosphatase 55 U/L (46-116); Anion Gap 7 (7-16); Aspartate Amino Transferase 18 U/L (0-34); BUN/Creatinine Ratio 10 Ratio (12-20); Bilirubin,Total 0.6 mg/dL (0.3-1.2); Blood Urea Nitrogen 20 mg/dL (9-23); Calcium 10.1 mg/dL (8.3-10.6); Calcium (Corrected) 10.1 mg/dL (8.5-10.1); Carbon Dioxide 29.2 mMol/L (20.0-31.0); Chloride 106 mMol/L (98-107); Creatinine (Component) 2.1 mg/dL (0.6-1.3); Globulin 2.4 gm/dL (2.3-3.5); Glucose 104 mg/dL (74-106); Osmolality,Calculated 285 (275-295); Potassium 4.3 mMol/L (3.4-5.1); Sodium 142 mMol/L (136-145); Thyroid Stimulating Hormone 4.92 uIU/mL (0.55-4.78); Total Protein 7.1 gm/dL (5.7-8.2); Uric Acid 7.5 mg/dL (3.7-9.2); eGFR 34 See Note
[2024-12-21 12:41] LABS: Vitamin B12 462 pg/mL (211-911)
[2024-12-21 12:50] LABS: Cardiac Risk Estimate 3.1 RATIO (4.0-6.7); Cholesterol 223 mg/dL (132-200); HDL Cholesterol 71 mg/dL (40-60); LDL Cholesterol,Calculated 117 mg/dL (0-130); Triglycerides 176 mg/dL (30-150)
== END | disposition home or self-care (01) ==
PROVIDERS: PCP Internal Medicine; Referring Provider Internal Medicine Hematology & Oncology; Visit Provider Internal Medicine
DX: N17.9 Acute kidney failure, unspecified (principal); I10 Essential (primary) hypertension; E78.5 Hyperlipidemia, unspecified; C01 Malignant neoplasm of base of tongue; Z85.038 Personal history of other malignant neoplasm of large intestine; Z85.048 Personal history of other malignant neoplasm of rectum, rectosigmoid junction, and anus; Z85.51 Personal history of malignant neoplasm of bladder; Z85.54 Personal history of malignant neoplasm of ureter
CPT/HCPCS: 36415; 80053; 80061; 81001; 82043; 82306; 82570; 82607; 83036; 84153; 84443; 84550; 85025

== ENCOUNTER 2024-12-23 14:49 | Outpatient (RCR) | payer MEDICARE, SELFPAY ==
--- NOTE | 2024-12-21 10:34 | CTCFLWUP_ITS ---
[facility] [address], [place] [address] FOLLOW-UP NOTE Date: 12/21/2024 MR#: [id number] Name: EVELINE MENENDEZ : 1960 Dx: C01 Malignant neoplasm of base of tongue Identification. Patient with p16 positive cT4N1 oropharyngeal CA involving base of tongue with extension of floor the mouth vallecular area with neck mets. Completed chemoradiation 7000 cGy between 05/24/2024 through 07/28/2024 with concurrent cisplatin. Posttreatment PET 09/17/2024 12 x 10 mm anterior tongue weakly hypermetabolic, appears much improved compared to pretreatment PET at [facility] of 04/11/2024 when posterior half of floor the mouth and bulky left base of tongue along with left neck appeared involved. Signatera negative 09/16/2024. Recently saw Dr. Kiko Bowen DO, ENT in [place] who examined patient reportedly seemed unconcerned by any recurrence but see him again in 1 month's time. As I see him today patient is experiencing some Discomfort upon swallowing and needs to drink extra water. Also was concerned about his turkey waffle. On my exam there was no sign of recurrence in the oral cavity oropharynx or neck. A#1. P16 positive T4 N1 oropharyngeal CA stage 3 . With good response following chemoradiation completed 07/28/2024. Posttreatment PET scan s 09/17/2024 hows considerable improvement compared to prior 1 performed in April 11, 2024. Dealing with side effects. #2. Had ENT eval by Dr. Bowen in [place], who told patient that he could not see any obvious sign of residual recurrent disease but will be followed regularly by him. #3 I will see patient again in 4 months time.. Cc: Kiko Bowen DO [facility] Electronically signed by: Jordan Chappell M.D. 12/21/2024 10:32 AM
== END 2025-01-16 23:59 | disposition home or self-care (01) ==
LOC: SCTC 14:49
PROVIDERS: PCP Internal Medicine; Referring Provider Internal Medicine; Visit Provider Radiology Therapeutic Radiology
DX: C01 Malignant neoplasm of base of tongue (principal); Z45.2 Encounter for adjustment and management of vascular access device
CPT/HCPCS: 36415; 80053; 80061; 81001; 82043; 82570; 82607; 83036; 84443; 84550; 85025; 96523; 99213; A4216; J1642; G0463